=== PATIENT | female | born 1930 | race Caucasian/White ===

== ENCOUNTER 2018-03-22 22:35 | Inpatient (IN) | payer MEDICARE, OTHER ==
[2018-03-22] MEDS ORDERED: Ondansetron HCl/PF 4 MG/2 ML Vial ONE (23:02)
[2018-03-22] MEDS ORDERED: Fentanyl 100 MCG/2 ML VIAL ONE (23:45)
[2018-03-22 23:50] LABS: #Lymphocytes 1.7 thou/uL (1.20-3.40); #Monocytes 0.9 thou/uL (0.11-0.59); #Neutrophils 12.8 thou/uL (1.40-6.50); %Basophils 0.1 % (0.0-1.0); %Eosinophils 0.1 % (0.0-10.0); %Lymphocytes 10.9 % (21.0-51.0); %Monocytes 5.9 % (0.0-10.0); Mean Corpuscular HGB CONC 34.9 g/dL (32.0-36.0); Mean Corpuscular Hemoglobin 32.3 pg (27.0-31.0); Mean Corpuscular Volume 92.6 fL (78.0-98.0); Mean Platelet Volume 6.1 fL (7.4-10.4); Platelet Count 232 thou/uL (130-400); RBC Distribution Width 11.6 % (11.5-14.5); Red Blood Cell (RBC) Count 4.34 mill/uL (4.20-5.40); White Blood Cell (WBC) Count 15.4 thou/uL (4.8-10.8)
[2018-03-22] MEDS ORDERED: Mag-Al 1200 mg/1200 mg/30 ML UDCUP PO PRN (23:54)
[2018-03-22] MEDS ORDERED: niCARdipine 20MG in NaCl 200 ML BAG IVPB PRN (23:54)
[2018-03-22] MEDS ORDERED: Ondansetron HCl/PF 4 MG/2 ML Vial IVP PRN (23:54)
[2018-03-22] MEDS ORDERED: Milk Of Magnesia 30 ML UDCUP PO PRN (23:54)
[2018-03-23 00:10] LABS: ALT (SGPT) 34 U/L (8-55); AST (SGOT) 42 U/L (5-34); Albumin 4.4 g/dL (3.4-4.8); Alkaline Phosphatase 93 U/L (40-150); Anion Gap 13 mmol/L (10-20); BUN (Urea Nitrogen) 11 mg/dL (9.8-20.1); Bilirubin, Total 0.5 mg/dL (0.2-1.2); Calc. Creatinine Clearance 0 mL/min (70-130); Calcium 8.9 mg/dL (7.8-10.44); Carbon Dioxide 25 mmol/L (23-31); Chloride 97 mmol/L (98-107); Estimated GFR-MDRD 83; Globulin 2.9 g/dL (2.4-3.5); Glucose 174 mg/dL (83-110); Potassium 3.7 mmol/L (3.5-5.1); Protein, Total 7.3 g/dL (6.0-8.3); Sodium 131 mmol/L (136-145)
[2018-03-23 00:15] LABS: INR-International Normal Ratio 0.9; PTT 34.2 SEC (22.9-36.1); Prothrombin Time 12.7 SEC (12.0-14.7)
[2018-03-23] MEDS: Sodium Chloride 0.9% 1,000 ML IV SCH ×2 (01:57→12:00)
[2018-03-23] MEDS: niCARdipine HCl 25 MG in Sodium Chloride 0.9% 250 ML 240 ML IVPB PRN ×5 (02:56→23:46)
--- NOTE | 2018-03-23 07:41 | HP ---
CHIEF COMPLAINT: Headache. HISTORY OF PRESENT ILLNESS: Ms. Nayely Oneil is an 87-year-old female who reports to the ED in [place] this evening due to a headache and possible stroke. The patient's states that they had a "good normal day." They were doing regular activities throughout the house and at about 8:30 this evening, the patient stated that she had a headache and that she thought she was having a stroke. They proceeded to the emergency room in [place] where a CT scan was performed and a large intraparenchymal hematoma was noted, the patient was then transferred to our ED in [place]. The patient is currently lying in her hospital bed. She keeps saying that she is sleepy. She is arousable if I talk to her or asked some questions, she will respond, she will open her eyes for me and she is moving all 4 extremities. She will squeeze on command. She will wiggle her toes. The patient has confusion with date and place. She also has confusion with answering some questions. She states that she is sleepy and that she has a mild headache. The patient denies any numbness or tingling. The patient is normally a very active individual takes care of her at home with her in the past 60 years. 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 Otherwise, she is quite healthy. REVIEW OF SYSTEMS: Positive for review of systems is headache; however, unable to obtain much more. The patient denies numbness or tingling. PAST MEDICAL HISTORY: Osteopenia, motion sickness, dysrhythmia, history of TIA , essential hypertension, severe aortic stenosis, hyperlipidemia, history of DVT , anemia. PAST SURGICAL HISTORY: TAVR in 05/2017, hysterectomy in 1991 and carpal tunnel release in 2014. FAMILY HISTORY: Positive for mother with possible stroke. Grandfather with cardiovascular disease in multiple siblings with multiple myeloma. SOCIAL HISTORY: The patient is a never smoker, does not use any alcohol or illicit drugs. She is to her of 66 years. They live together independently and have an active life together. MEDICATIONS: Fosamax, aspirin, atorvastatin, biotin, calcium carbonate, carvedilol, clonidine, Plavix, hydrochlorothiazide, and olmesartan. PHYSICAL EXAMINATION: VITAL SIGNS: Temperature 98.0, heart rate 86, respiratory rate 18, blood pressure was 137/84. CONSTITUTIONAL: The patient is drowsy, lying in her hospital bed. She does not appear to be in any visible distress. She is afebrile. HEENT: Head: Normocephalic, atraumatic. ENT: Hearing is intact. Moist mucous membranes. RESPIRATORY: Showed normal work of breathing on room air. Normal symmetrical chest rise. CARDIOVASCULAR: Regular rate and rhythm. NEUROLOGIC: The patient's GCS is 13. She is alert and arousable. She is oriented to person. She does not know where she is or what year it is. She is confused and repeats years at times. The patient is moving all four extremities. She is following commands. She will open her eyes. Her pupils are equal, round, and reactive to light bilaterally. Extraocular movements, she has gaze to the left; however, movements to the right are limited and unsure if the patient can see to the right. The patient has no pronator drift, but difficult to raise both arms up in front of her. The patient has decreased motion in the right lower extremity showing a small toe wiggle. Sensation, the patient states that she can feel light touch in all 4 extremities and both sides of her face. IMAGING: CT head, there is a large intraparenchymal hematoma noted, centered at the left perioccipital lobe measuring 3.3 x 3.7 x 5.5 cm. There is surrounding vasogenic edema, intraventricular hemorrhage extension noted with hemorrhagic distention to the left. There is lateral ventricle extending to the third ventricle and encroachment upon the foramen of Monro associated dilation of the right lateral ventricle suggest ventricle entrapment, right lateral midline shift measures 1 cm left posterior cerebral convexity extraaxial , hemorrhage also extends to the subarachnoid space with adjacent subdural hemorrhage extending along the left tentorium. ASSESSMENT AND PLAN: This is an 87-year-old female with a large intraparenchymal hematoma with ventricular extension. The patient is currently on anticoagulants in addition to being hypertensive, which poses a large risk for continued bleeding. At this time, we will admit the patient to the ICU. We will keep her blood pressure below 150. We will have neuro checks every 4 hours. We will get a repeat scan at 4:00 a.m. and we will reverse anticoagulation with platelets. CORTEZ
[2018-03-23] MEDS: Pantoprazole 40 MG VIAL IVP SCH ×2 (08:38→23:12)
--- NOTE | 2018-03-23 09:11 | PRG ---
DATE OF SERVICE: 03/23/2018 NEUROSURGERY NOTE I personally interviewed and examined the patient, spoke with the and niece, reviewed records and imaging and agree with documentation of Catherine Barrios PA-C dated 03/22/2018. SUBJECTIVE: Briefly, Ms. Nayely Oneil is an 87-year-old woman from [place] who was taken to the [place] emergency department yesterday with new onset hemianopsia and decreased mental status. She was tripathi sferred to [facility] after CT examination of the brain showed intra cerebral hemorrhage with some extension into the ventricular system and subdural space. She has been admitted to our ICU overnight. Blood pressure has been well controlled overnight and her blood pres sure when I saw this morning was in the 120s. Her pulse was in the 70s. She is satting well. As I entered the room and say her name, Ms. Oneil opens her eyes. She nods her head. She says a few word s to questions. When I have her open her eyes and look at my face, her right visual field is missing . She is moving both sides of her body fairly well. She follows commands very well. She squeezes b oth hands, the left arm moves a little slower than the right, but it is hard to tell a significant mo tor difference actually. She drifts back to sleep fairly quickly. CT examination of the brain this morning compared to the [facility] scan yesterday shows a small increase in the size of the intracerebral hemorrhage and there is some dural extension and extension into the ventricular system. This is the beginning of some vasogenic edema surrounding. This morning, her sodium is 131. Ms. Oneil is doing relatively well from the hemorrhage of this size. Her visual field cut, which I u nfortunately think will be somewhat permanent. It may improve from here, but I think there will be s ome visual difficulty going forward. She is moving both sides of her body. She is arousable and ans wering questions and trying to communicate before falling back to sleep. I do not think surgical int ervention will be warranted, but we need to watch for and prevent any worsening of her vasogenic reina a. We will ensure the blood has stopped hemorrhaging with a unit of platelets. We will control her blood pressure while she is here. We will keep an EVD tray accessible in case hydrocephalus she deve lop. So far, I am happy with her examination. I do not think we need to perform any invasive proced ures. It would also be high risk given her recent Plavix and aspirin use. Ms. Oneil's reiterated her wish not to be intubated, not to have chest compressions, and not to have shocks for her heart, if she develops any dysrhythmias that might require it. If there is a deterioration, I will need to get in touch with the family quickly to talk to them before placing an external ventricular drain or any operative intervention. Hopefully, we can manage this with avoidan ce of hypotonic fluids, mannitol if necessary and supportive care.
--- NOTE | 2018-03-23 09:55 | CT ---
PRELIMINARY REPORT/[facility]/EMERGENTY AFTER-HOURS PROCEDURE Addendum created by Hosea Meneses MD on 03/23/2018 4:45 AM Central Time ([place] [employer] [place]) Findings discu ssed with Denis Alexander at time of interpretation. Initial Report created on 03/23/2018 4:34 AM Central Time ([place] [employer] [place]) CT Head Without Intravenous Contrast EXAM DATE/TIME: 03/23/2018 3:28 AM CLINICAL HISTORY: 87 years old, female; Condition or disease; Other: Hemorrhage; Patient HX: Eval intracranial hemorrha ge; Additional info: No prior studies, PT is a transfer from another facility TECHNIQUE: Axial computed tomography images of the head/brain without intravenous contrast. COMPARISON: No relevant prior studies available. FINDINGS: Brain: There is also extra-axial blood layering along the left tentorium cerebelli and a 2 cm parench ymal hemorrhage in the right occipital lobe as well as trace posterior right frontal subarachnoid hem orrhage. 1 cm rightward midline shift. Volume loss and chronic small vessel ischemic change. Ventricles: Large left parieto-occipital intraparenchymal hematoma spanning approximately 7-8 cm in m aximum dimension, with extension into the left lateral ventricle. There is clot filling and expanding the entire left lateral ventricle as well as filling the third and fourth ventricles and extending i nto part of the right lateral ventricle. Enlargement of lateral ventricles compatible with obstructiv e hydrocephalus. Bones/joints: Normal. No acute fracture. Sinuses: Normal as visualized. No acute sinusitis. Mastoid air cells: Normal as visualized. No mastoid effusion. Soft tissues: Normal. IMPRESSION: Multifocal intracranial hemorrhage with dominant left parieto-occipital intraparenchymal hematoma ext ending into the ventricular system. Obstructive hydrocephalus. 1 cm rightward midline shift. Thank you for allowing us to participate in the care of your patient. Dictated and Authenticated by: Hosea Meneses MD 03/23/2018 4:34 AM Central Time ([place] [employer] [place]) FINAL REPORT EMERGENT AFTER HOURS NONCONTRAST CT HEAD: DATE: 03/23/18. HISTORY: Intracranial hemorrhage, hypertension. IMPRESSION: 1. Large left parietooccipital intraparenchymal hematoma measuring approximately 5.7 cm x 4.1 cm. T here is intraventricular hemorrhage present with a large amount of hemorrhage present within the left lateral ventricle as well as hemorrhage within the right lateral, third, and in the fourth ventricle s. 2. Subdural hemorrhage along the ;eft tentorium and along the posterior inferior falx. 3. Mild dilatation of the temporal horns, likely related to a component of obstructive hydrocephalus . 4. Chronic small-vessel ischemic changes. 5. Effacement of sulci in left cerebral hemisphere. There is shift of midline structures to the rig ht, a large portion related to the extensive hemorrhage within the left lateral ventricle expanding t he left lateral ventricle and shifting midline structures to the right. This shift of midline struct ures measures approximately 1 cm. 6. Trace amount of subarachnoid hemorrhage in the posterior right frontal lobe. POS: [facility]
[2018-03-23] MEDS ORDERED: Norepinephrine 8 MG/0.9% NS 0 ML ONE (15:13)
--- NOTE | 2018-03-23 15:22 | CT ---
NONCONTRAST CT HEAD: DATE: 03/23/18. HISTORY: Followup intracranial hemorrhage. COMPARISON: 03/23/18 at 0329 hours. FINDINGS: Large parenchymal hematoma in the left parietooccipital lobe is again seen with adjacent edema. Measured in a similar location, the parenchymal hematoma is overall stable in size. Again noted is i ntraventricular extension of hemorrhage with a large amount of hemorrhage within the left lateral tatiana tricle and third ventricle. The subdural hematoma along the tentorium along the falx on the left is again seen and overall is similar in size. There is again subarachnoid hemorrhage seen within the po sterior right frontal lobe. Mass effect in left cerebral hemisphere is also again seen and there is persistent shift of the midlines structures. Midline shift has not significantly changed from the pr ior exam. There is a small amount of subarachnoid hemorrhage seen with the posterior right parietal region which was not well seen on prior study. No other interval change. IMPRESSION: 1. Extensive intraparenchymal and interventricular hemorrhage similar to prior study with a large pa renchymal hematoma again occupying a large portion of the left parietooccipital lobe. In addition, t here are areas of subarachnoid hemorrhage in the posterior right frontal lobe as well as the right pa rietal lobe with subdural hematoma on the left. 2. Extensive intraventricular hemorrhage is present primarily involving the left lateral ventricle w ith expansion of the lateral ventricle and findings suggestive of obstructive hydrocephalus. 3. Stable shift of midline structures to the right with stable mass effect involving the left cerebr al hemisphere. POS: [facility]
--- NOTE | 2018-03-23 17:53 | CON ---
DATE OF CONSULTATION: HISTORY OF PRESENT ILLNESS: Ms. Nayely Oneil is an 87-year-old female from [place], [place]. She normall y sees [facility] physician here locally, presented yesterday with acute onset of left eye visio n problems and a headache and told to the , she was having a stroke she had intracranial hemorrhage. She was transferred here under the care of Dr. Jacobson. CT of the head confirmed the intracranial hemorrhage. She is a nonsmoker. Presently, she denies any chest pain, chills, or sweats. PAST MEDICAL HISTORY: Pertinent for, 1. Recent TAVR surgery done [facility] in [place] 2. History of hypertension. 3. History of hyperlipidemia. 4. Anemia. 5. History of previous DVT. PAST SURGICAL HISTORY: Include carpal tunnel, TAVR, abdominal hysterectomy. MEDICATIONS: Including alendronate 70 mg a day, aspirin 81, calcium, Coreg 6.25 two a day, Catapres patch 0.1 24 hours, Plavix 75. ALLERGIES: None. SOCIAL AND FAMILY HISTORY: Otherwise unremarkable. No alcohol, no tobacco abuse. She had some kind of a clerical job. Patient is apparently a DNR per the family's wishes. She is on a Cardene drip. PHYSICAL EXAMINATION: VITAL SIGNS: Blood pressure 130/53, sats are 95, temperature 98, respirations 15. GENERAL: Awake, alert, responsive. EXTREMITIES: Does move all 4 extremities. CHEST: Decreased breath sounds without any wheezing. CARDIAC: Normal S1, S2, no gallops. ABDOMEN: Soft without any masses. LABORATORY DATA: Sodium is 131, otherwise electrolytes are normal. CBC is unremarkable. Platelet count is normal. IMPRESSION AND PLAN: The patient is a DNR as per the family's wishes. Dr. Jacobson has spoken to the family at length. I understand they are going to transfuse some plat elets, because of Plavix that she was taking. Pulmonary and Critical Care will follow while in the [facility]. Once she is able to swallow, we will switch over to oral antihypertensive medication. This is a consultation note of 70 minutes, in which 50% spent in direct patient care.
[2018-03-24] MEDS: Sodium Chloride 0.9% 1,000 ML IV SCH ×2 (01:51→16:48)
--- NOTE | 2018-03-24 07:21 | PRG ---
DATE OF SERVICE: 03/24/2018 I saw Nayely Oneil in her ICU room this morning. Yesterday, she got a unit of platelets in the morning. A repeat CT scan that was stable, and overnight, her vitals looked stable to me. I do not see any recorded fevers. Blood pressures have been within her parameters and running from the 110s to the 14 0s. When I see Ms. Oneil in her ICU room this morning and say her first name, she opens her eyes. S he says hello. She tells me that she will wiggle her toes, but she does not get to wiggle her toes b efore falling back asleep. She squeezes my hand on both sides. She is very purposeful. She rolls o katherin in bed. She adjusts the sheet. She makes herself comfortable. She rests. Other than her tired ness, there is not significant alteration in her neurological function except for the hemianopsia. S he may have some hemianopsia. Sodium on the was 131 and should be repeated. Ms. Oneil has intracerebral hemorrhage with some extension into the subdural space and some extension into the ventricular system. She is at least 36 hours out from her ictus, and I doubt she will need neurosurgical intervention at all. I would like to watch her sodium to make sure that we do not exa cerbate any vasogenic edema around the clot. We will follow up with Ms. Oneil tomorrow. Her primary management can be transitioned to the medical team for this nonsurgical intracerebral hemorrhage.
[2018-03-24 07:55] LABS: #Lymphocytes 1.2 thou/uL (1.20-3.40); #Monocytes 0.9 thou/uL (0.11-0.59); #Neutrophils 10.7 thou/uL (1.40-6.50); %Basophils 0.1 % (0.0-1.0); %Monocytes 6.9 % (0.0-10.0); %Neutrophils 83.9 % (42.0-75.0); Hemoglobin 12.4 g/dL (12.0-16.0); Mean Corpuscular HGB CONC 35.9 g/dL (32.0-36.0); Mean Corpuscular Hemoglobin 33.3 pg (27.0-31.0); Mean Corpuscular Volume 92.7 fL (78.0-98.0); Mean Platelet Volume 6.1 fL (7.4-10.4); Platelet Count 245 thou/uL (130-400); RBC Distribution Width 11.8 % (11.5-14.5); Red Blood Cell (RBC) Count 3.73 mill/uL (4.20-5.40); White Blood Cell (WBC) Count 12.8 thou/uL (4.8-10.8)
[2018-03-24 08:14] LABS: Anion Gap 12 mmol/L (10-20); BUN (Urea Nitrogen) 10 mg/dL (9.8-20.1); Calc. Creatinine Clearance 72 mL/min (70-130); Calcium 8.4 mg/dL (7.8-10.44); Carbon Dioxide 24 mmol/L (23-31); Chloride 97 mmol/L (98-107); Estimated GFR-MDRD Greater than 90; Glucose 145 mg/dL (83-110); Potassium 3.1 mmol/L (3.5-5.1); Sodium 130 mmol/L (136-145)
[2018-03-24] MEDS ORDERED: Labetalol HCl 100 MG/20 ML VIAL SLOW IVP PRN (08:42)
[2018-03-24] MEDS ORDERED: cloNIDine 0.1mg/24 Hour PATCH TD SCH (09:00)
[2018-03-24] MEDS: Pantoprazole 40 MG VIAL IVP SCH (09:13)
--- NOTE | 2018-03-24 11:02 | PRG ---
DATE OF SERVICE: 03/24/2018 This morning she is in the ICU on a Cardene drip. Speech is to see her today to see if she can swall ow. She is moving all 4 extremities. PHYSICAL EXAMINATION: VITAL SIGNS: Temperature is 97, pulse 95, respirations 20, sats are 94%, blood pressure 131/60. CHEST: Chest reveals decreased breath sounds without wheezing. CARDIAC: Normal S1, S2, no gallops. ABDOMEN: Soft, no masses. LABORATORY: Sodium 130. White count 12,000, H&H [address] brain yesterday shows as outlined extensive intraventricular hemorrhage. PLAN: Continue supportive care. Start antihypertensive medication. PT. Try and wean off Cardene. We will follow while in the ICU.
[2018-03-24] MEDS: niCARdipine HCl 25 MG in Sodium Chloride 0.9% 250 ML 240 ML IVPB PRN (11:10)
[2018-03-24] MEDS: niCARdipine HCl 50 MG in Sodium Chloride 0.9% 250 ML 230 ML IVPB PRN (16:50)
[2018-03-24] MEDS ORDERED: Potassium Chloride 20 MEQ TAB PO SCH (17:00)
--- NOTE | 2018-03-24 18:27 | ULT ---
BILATERAL LOWER EXTREMITY VENOUS DOPPLER ULTRASOUND: 03/24/2018 HISTORY: Stroke. Limited movement. High risk for DVT. COMPARISON: None. TECHNIQUE: Multiplanar carrion-scale sonographic imaging of the venous structures of the bilateral lower extremitie s obtained with color-flow and spectral analysis. FINDINGS: The bilateral common femoral veins, greater saphenous veins, profunda femoral vein, femoral veins, po pliteal veins, and posterior tibial veins are patent. There is normal blood flow, augmentation, and compression within the deep venous system bilaterally, with no evidence for DVT on either side. IMPRESSION: No evidence for deep venous thrombosis of either lower extremity. POS: [facility]
[2018-03-24] MEDS ORDERED: Potassium Chloride 40 MEQ in Sodium Chloride 0.9% 250 ML 250 ML IVPB SCH (22:30)
[2018-03-25] MEDS: Sodium Chloride 0.9% 1,000 ML IV SCH ×3 (00:22→20:18)
[2018-03-25] MEDS: niCARdipine HCl 50 MG in Sodium Chloride 0.9% 250 ML 230 ML IVPB PRN (04:20)
[2018-03-25 06:42] LABS: #Lymphocytes 1.6 thou/uL (1.20-3.40); #Neutrophils 8.4 thou/uL (1.40-6.50); %Basophils 0.1 % (0.0-1.0); %Eosinophils 0.2 % (0.0-10.0); %Lymphocytes 14.5 % (21.0-51.0); %Monocytes 9.2 % (0.0-10.0); Hemoglobin 12.7 g/dL (12.0-16.0); Mean Corpuscular HGB CONC 35.4 g/dL (32.0-36.0); Mean Corpuscular Hemoglobin 32.5 pg (27.0-31.0); Mean Corpuscular Volume 91.8 fL (78.0-98.0); Mean Platelet Volume 5.8 fL (7.4-10.4); Platelet Count 231 thou/uL (130-400); RBC Distribution Width 11.8 % (11.5-14.5); Red Blood Cell (RBC) Count 3.89 mill/uL (4.20-5.40); White Blood Cell (WBC) Count 11.1 thou/uL (4.8-10.8)
[2018-03-25 07:01] LABS: Anion Gap 8 mmol/L (10-20); BUN (Urea Nitrogen) 12 mg/dL (9.8-20.1); Calc. Creatinine Clearance 73 mL/min (70-130); Calcium 8.7 mg/dL (7.8-10.44); Carbon Dioxide 28 mmol/L (23-31); Chloride 100 mmol/L (98-107); Estimated GFR-MDRD Greater than 90; Glucose 123 mg/dL (83-110); Potassium 3.7 mmol/L (3.5-5.1); Sodium 132 mmol/L (136-145)
--- NOTE | 2018-03-25 07:04 | PRG ---
DATE OF SERVICE: 03/25/2018 I saw Ms. Oneil in the ICU this morning. Yesterday, her sodium was 130, I made some adjustments to h er fluid intake and due to her nicardipine drip, severely limited the amount she could take p.o. No other events were reported over the last 24 hours. Her T-max is 99.3, blood pressures have been in 1 30s to 140s. Other vitals are stable. Ms. Oneil is resting comfortably in bed as I enter the room. If I call her first name she opens her eyes. She is purposeful with 4 extremities. She is slightly sore over the right arm this morning than she was yesterday, but eventually she begins to move it. She tells me she can follow commands, but there is quite a delay between her accepting the instructio n and then performing them. With patience and time she does. She certainly is purposeful, she rearr anges herself on her own. She moves bed sheets. She tries to move the pillow. She wants to get up and out of bed and restraints are in place. Laboratory values are not back yet this morning. Ms. Oneil suffered a nonsurgical intracerebral hemorrhage with some extension into the ventricular sy stem and the subdural space. 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 Going forward, I will do our best to make sure that the surrounding vasogenic edema is mitigated by k eeping her sodium in the normal range. We will do that first by limiting her fluid intake, if we hav e to changes to hypertonic saline infusions then that change can be made. I think we will be able to get by with fluid restriction. It is exceedingly unlikely Ms. Oneil will require neurosurgical intervention for this hemorrhage. Inpatient rehabilitation is likely to be necessary as well as physical and occupational therapy. The Neurosurgery team will be available for questions as our colleagues in the medical team will take ov er care per protocol.
--- NOTE | 2018-03-25 08:51 | PRG ---
DATE OF SERVICE: 03/25/2018 This morningshevis swallowing. PHYSICAL EXAMINATION: VITAL SIGNS: Pulse 88, blood pressure is 129/56, 2-1/2 mg of Cardene, she is afebrile, respirations 18. GENERAL: In no distress. CHEST: Chest reveals decreased breath sounds, no wheezing. CARDIAC: Normal S1, S2, no gallops. ABDOMEN: Soft, no masses. IMPRESSION: 1. Status post leftICH_ hematoma. Stable shift. 2. Hypertension. PLAN: We are trying to taper and discontinue her Cardene. She is already on a Catapres patch from home. She normally takes low dose of HCTZ. We will continue supportive care, PT, nutrition. Eventually placement. MTDD
[2018-03-25] MEDS ORDERED: Pantoprazole 40 MG VIAL IVP SCH (09:00)
[2018-03-25] MEDS ORDERED: Carvedilol 6.25 MG TAB PO SCH (09:00)
--- NOTE | 2018-03-25 16:01 | PDOC.EVN ---
Event Note - Event Note Event Note: CONSULT DICTATED #[id number]
[2018-03-25] MEDS ORDERED: HumaLOG 300 UNITS/3 ML VIAL SC PRN (16:05)
[2018-03-25] MEDS ORDERED: Dextrose 50% Abboject 50 ML SYRINGE SLOW IVP PRN (16:05)
[2018-03-25] MEDS ORDERED: Dextrose 5% in Water 1,000 ML IV PRN (16:05)
--- NOTE | 2018-03-25 16:19 | CON ---
DATE OF CONSULTATION: 03/25/2018 CONSULTED SERVICE: Hospitalist Internal Medicine. ATTENDING TEAM: Neurosurgery. REASON FOR CONSULTATION: Medical management. CHIEF COMPLAINT: Headache. HISTORY OF PRESENT ILLNESS: This is an 87-year-old female who is being seen in the hospital by the I nternal Medicine team 3 days after admission for medical management. The patient was initially prese nting with headache and was admitted to the ICU after having been found with an intraparenchymal ismael neela with ventricular extension. The patient was admitted to the Neuro ICU and seen by Neurosurgery. The patient has been managed this far by Neurosurgery and Pulmonary and stroke team appropriately. No changes in management thus far will be recommended. The patient has had evaluations done with a brain CT at point in time of admission, which showed an extensive intraparenchymal and intraventricul ar hemorrhage and extensive intraventricular hemorrhage involving the left lateral ventricle and expa nsion of the lateral ventricle as well. The patient at this point in time is being seen by Internal Medicine for blood pressure management. The patient does not provide any history. No family at [facility]. History obtained from chart review. The patient has a past medical history for hypertension, w hich has been difficult to control. The patient also has a history for hyperlipidemia, anemia, prior DVT as well as valvulopathy status post TAVR at [facility] in [place]. ALLERGIES: Per documentation none. MEDICATIONS: See MAR. PAST SURGICAL HISTORY: Inclusive of carpal tunnel, TAVR and abdominal hysterectomy. PAST MEDICAL HISTORY: Inclusive of hypertension, hyperlipidemia, anemia and prior DVT. SOCIAL HISTORY: Per documentation is a nontobacco user, no alcohol user. FAMILY HISTORY: Unavailable. REVIEW OF SYSTEMS: Not able to be performed given current patient condition. PHYSICAL EXAMINATION: VITAL SIGNS: Blood pressure is 123/54, respiratory rate of 19, heart rate of 87, temperature of 98, O2 saturation of 98% on room air. GENERAL: The patient is lying in bed, in no acute distress. HEENT: Pupils equal, round and reactive to light and accommodation. The patient is sleeping and larry s does not track me through the room. Oral cavity is moist and pink. NECK: Supple, nontender, mobile thyroid appreciated. LUNGS: Clear to auscultation bilaterally. No respiratory distress noted. No increase in AP diamete r. CARDIOVASCULAR: Regular rate and rhythm. S1, S2. Faint systolic murmur appreciated in the left ajit rnal border. ABDOMEN: Positive bowel sounds, soft, nontender, nondistended. EXTREMITIES: 2+ peripheral pulses. No cyanosis, clubbing or edema noted. Trace pitting edema noted in lower extremities as well as trace sacral edema noted, pitting. NEUROLOGIC: The patient withdraws to pain stimuli, decorticate posturing upon sternal rub, does not respond to verbal stimuli, does not track me through the room. SKIN: Normal and intact. No rashes noted. LABORATORY DATA: CBC is within acceptable limits. Basic metabolic panel shows a serum sodium of 132 . The rest of the panel is within acceptable limits. Glucose borderline elevated at 123. IMAGING STUDIES: Brain CT scan as mentioned earlier in HPI does show intraventricular hemorrhage. V enogram shows no DVT in the extremities. ASSESSMENT: 1. Intracranial hemorrhage extending into the intraventricular region as well. 2. Hypertension. 3. Hyponatremia. 4. Hyperglycemia. 5. History of dyslipidemia. 6. History of valvulopathy, status post TAVR. PLAN: At this point in time, I agree with current management from the Neuro Critical Care Service. Would probably target a blood pressure of systolic 120-140. We will also obtain an A1c to evaluate f or diabetes status given that prior records show blood sugars ranging into the 140-170 range. Agree with the current medical regimen. We will check daily labs and target blood pressures as menti oned above. We will start the patient on a sliding scale as well given hyperglycemia and we will als o start the patient on DVT prophylaxis with SCDs. We will hold off any antiplatelets or any anticoag ulation at this point in time unless cleared to be given by Neurosurgery, given that the patient pres ented with a bleed. No family at bedside. Phone number available in chart was dialed, however, no one responded. Thank you for this consultation. We will follow very closely with you and make changes from a medica l perspective as appropriate.
[2018-03-25] MEDS ORDERED: Digoxin 0.5 MG/2 ML AMP SLOW IVP SCH (16:30)
[2018-03-25 16:44] LABS: Hemoglobin A1c 5.4 % (4.0-6.0)
[2018-03-25] MEDS: Carvedilol 6.25 MG TAB PO SCH (17:20)
[2018-03-26] MEDS: Acetaminophen 325 MG TAB PO PRN (01:37)
[2018-03-26] MEDS: Sodium Chloride 0.9% 1,000 ML IV SCH ×2 (05:39→23:21)
[2018-03-26 06:57] LABS: Anion Gap 11 mmol/L (10-20); BUN (Urea Nitrogen) 8 mg/dL (9.8-20.1); Calc. Creatinine Clearance 76 mL/min (70-130); Calcium 8.6 mg/dL (7.8-10.44); Carbon Dioxide 24 mmol/L (23-31); Chloride 97 mmol/L (98-107); Estimated GFR-MDRD Greater than 90; Glucose 108 mg/dL (83-110); Potassium 3.2 mmol/L (3.5-5.1); Sodium 129 mmol/L (136-145)
[2018-03-26] MEDS: Carvedilol 6.25 MG TAB PO SCH (08:05)
[2018-03-26] MEDS ORDERED: cloNIDine 0.1mg/24 Hour PATCH TD SCH (09:00)
--- NOTE | 2018-03-26 09:03 | PRG ---
DATE OF SERVICE: 03/26/2018 SUBJECTIVE: This morning, to my surprise, more awake, responsive. She is eating. She answers quest ions. She is unable to see on the right side, right hemianopsia is present. OBJECTIVE: VITAL SIGNS: Blood pressure was still elevated 161/17, sats are 100% on 2 liters. She is afebrile. CHEST: Chest reveals decreased breath sounds, no wheezing. CARDIAC: Normal S1, S2. No gallops. ABDOMEN: Soft, no masses. LABORATORY DATA: Sodium is 129, potassium 3.2. Urine output is excellent. IMPRESSION: 1. Status post supraventricular tachycardia, now in normal sinus rhythm on Coreg, off nicardipine. 2. Intracerebral hemorrhage. PLAN: Continue PT and supportive care, eventually placement. We will follow. One-half hour critical care time.
[2018-03-26] MEDS: hydrALAZINE 20 MG/ML VIAL SLOW IVP PRN ×2 (15:41→20:12)
--- NOTE | 2018-03-26 19:09 | PDOC.PN ---
- Subjective Encounter Start Date: 03/26/18 Encounter Start Time: 10:40 -: non-verbal Subjective: Patient seen by bedside with and niece in the room. -: Patient here with CC of Intracranial hemorragic stroke -: Patient nods to verbal stimuli. Patient is Alert to self but not to place - Objective Vital Signs & Weight: Vital Signs (12 hours) Temp Pulse Resp BP Pulse Ox 03/26/18 16:00 98.6 F 03/26/18 15:41 74 173/72 H 03/26/18 12:00 98.7 F 03/26/18 08:05 163/117 H 03/26/18 08:00 98.2 F 66 18 98 Weight Admit Weight 139 lb Weight 138 lb 14.259 oz Most Recent Monitor Data Heart Rate from ECG 88 NIBP 158/67 NIBP BP-Mean 87 Respiration from ECG 18 SpO2 97 I&O: 03/25/18 03/26/18 03/27/18 06:59 06:59 06:59 Intake Total 1460 2163 1401 Output Total 930 3677 1610 Balance 530 -0774 -209 Result Diagrams: 03/25/18 06:34 03/26/18 06:13 Additional Labs: Accuchecks 03/26/18 03/25/18 16:12 20:41 POC Glucose 154 H 125 H Phys Exam - Physical Examination HEENT: moist MMs, sclera anicteric Respiratory: no wheezing, no rales, no rhonchi, clear to auscultation bilateral Cardiovascular: RRR, no rub Gastrointestinal: soft, no distention, positive bowel sounds Musculoskeletal: no edema, pulses present 2/5 Left arm strength, 1/5 R arm strength, Pupil reactive to light b/l Deviation from normal: AOX1 Skin: no rash Dx/Plan (1) History of hemorrhagic stroke with residual hemiparesis Code(s): I69.359 - HEMIPLGA FOLLOWING CEREBRAL INFARCTION AFFECTING UNSP SIDE Status: Acute Comment: Continue Neuro surgery management (2) Hypertension Code(s): I10 - ESSENTIAL (PRIMARY) HYPERTENSION Status: Acute Qualifiers: Hypertension type: essential hypertension Qualified Code(s): I10 - Essential (primary) hypertension Comment: Continue hydralazine, Lebatolol prn, Clonidine, (3) Hyperlipidemia Code(s): E78.5 - HYPERLIPIDEMIA, UNSPECIFIED Status: Chronic (4) Acute hyponatremia Code(s): E87.1 - HYPO-OSMOLALITY AND HYPONATREMIA Status: Acute - Plan plan discussed w/ family, DVT proph w/SCDs * . Review of Systems - Medications/Allergies Allergies/Adverse Reactions: Allergies Allergy/AdvReac Type Severity Reaction Status Date / Time No Known Drug Allergies Allergy Verified 03/23/18 01:58 Medications: Current Medications Acetaminophen (Tylenol) 650 mg PO Q6H PRN PRN Reason: Fever > 101 or Headache Last Admin: 03/26/18 01:37 Dose: 650 mg Al Hydroxide/Mg Hydroxide (Maalox) 30 ml PO QIDPRN PRN PRN Reason: Dyspepsia Carvedilol (Coreg) 25 mg PO BID-WM MICHAEL Clonidine (Kszcjiuc-Cxl-7 Patch) 0.2 mg TD Q7DAYS [facility] Last Admin: 03/26/18 13:32 Dose: 0.2 mg Dextrose/Water (Dextrose 50%) 25 gm SLOW IVP PRN PRN PRN Reason: Hypoglycemia Docusate Sodium (Colace) 100 mg PO BIDPRN PRN PRN Reason: Constipation Glucagon (Glucagon) 1 mg IM PRN PRN PRN Reason: Hypoglycemia Hydralazine HCl (Apresoline) 10 mg SLOW IVP Q4H PRN PRN Reason: SBP >160 Last Admin: 03/26/18 15:41 Dose: 10 mg Nicardipine HCl 50 mg/ Sodium (Chloride) 250 mls @ 0 mls/hr IVPB INF PRN; Protocol; Titrate PRN Reason: For SBP > 150 or DBP > 90 Last Admin: 03/25/18 04:20 Dose: 250 mls Dextrose/Water (D5w) 1,000 mls @ 0 mls/hr IV .Q0M PRN; As Directed PRN Reason: Hypoglycemia Sodium Chloride (Normal Saline 0.9%) 1,000 mls @ 100 mls/hr IV .Q10H [facility] Last Admin: 03/26/18 05:39 Dose: 1,000 mls Insulin Human Lispro (Humalog) 0 units SC .MILD SLIDING SCALE PRN PRN Reason: Mild Correctional Scale Labetalol HCl (Normodyne) 10 mg SLOW IVP Q4H PRN PRN Reason: SBP Greater Than 180 Magnesium Hydroxide (Milk Of Magnesium) 30 ml PO BIDPRN PRN PRN Reason: Constipation Ondansetron HCl (Zofran) 4 mg IVP BIDPRN PRN PRN Reason: Nausea/Vomiting Pantoprazole Sodium (Protonix) 40 mg PO DAILY MICHAEL Sodium Chloride (Flush - Normal Saline) 10 ml IVF PRN PRN PRN Reason: Saline Flush Last Admin: 03/23/18 23:12 Dose: 10 ml
--- NOTE | 2018-03-27 00:41 | CON ---
CARDIOLOGY CONSULT NOTE DATE OF ADMISSION: 03/23/2018 DATE OF CONSULTATION: 03/26/2018 INDICATION FOR CONSULTATION: An 87-year-old female with an intracerebral bleed., who underwent a pre vious TAVR, also had an episode of atrial fibrillation earlier today or last night. HISTORY OF PRESENT ILLNESS: This is a very unfortunate 87-year-old female who has undergone recently a TAVR, I believe this was performed at [facility]. She has been doing very well at home and t old her that she thought she was having a stroke. She went to the emergency room and was fou nd to have a large intraparenchymal bleed. She then was transferred to the hospital here, she has be en taken off her Plavix and aspirin due to the bleed. There are no focal motor deficits. The patien t is hard of hearing and is somewhat hard to communicate and otherwise was relatively stable, but the n started having an episode of atrial fibrillation earlier today. She has since converted back to si nus rhythm after medical management. We are being asked to see her due to her cardiac problems and a lso the atrial fibrillation. At this time, she is arousable, she is in sinus rhythm with occasional PVCs. She does not answer my questions at this time, but is difficult to arouse, most likely this is due to her hearing deficit, but there were no other significant complaints from the patient. PAST MEDICAL HISTORY: Significant for the TAVR due to severe aortic valve stenosis, hyperlipidemia. She has had a history of DVTs, anemia, history of TIA in the past. She has history of osteopenia. She has had some arrhythmias. She has history of hypertension. She has had a hysterectomy and also carpal tunnel release. FAMILY HISTORY: Mother had a possible CVA. Father had cardiovascular disease. She has had multiple siblings with multiple myeloma. SOCIAL HISTORY: No history of alcohol or tobacco abuse. She still lives with her at home. MEDICATIONS PRIOR TO ADMISSION: Included Fosamax, aspirin, atorvastatin, biotin, calcium carbonate, Coreg, clonidine, Plavix, hydrochlorothiazide, and olmesartan. ALLERGIES: There are no known drug allergies. REVIEW OF SYSTEMS: Not obtainable at this time. Please refer to the notes already dictated. PHYSICAL EXAMINATION: GENERAL: Reveals an elderly female who is in no acute distress at this time. She is arousable, but appears to be somewhat lethargic. VITAL SIGNS: Her blood pressure is 166/66, heart rate is 74 and shows a regular rhythm with occasion al PVCs. She is afebrile, respiratory rate is about 16-18. HEENT: Shows head to be normocephalic, atraumatic. LUNGS: Carotid pulses are present. I did not hear any significant bruits at this time. Chest is cl ear to auscultation without any rales, rhonchi, or wheezing. CARDIOVASCULAR: I did not hear any significant murmurs. She has regular rate and rhythm and now wit h normal S1, S2. ABDOMEN: Soft and nontender. Positive bowel sounds are present. EXTREMITIES: Show no clubbing or cyanosis. NEUROLOGIC: Please refer to the physical examination by the neurologist. She is not cooperative at this time for a neurological evaluation. She is able to move her all four extremities, however. SKIN: Warm and dry. LABORATORY DATA: Shows a sodium of 129, potassium 3.2, chloride 97, bicarbonate is 24, BUN is 8 with a creatinine 0.53, blood sugar is 154. Hemoglobin A1c is 5.4. Her INR is 0.9. WBC 11.1, hemoglobi n 12.7, hematocrit 35.7, platelet count is 231,000. IMPRESSION: 1. Atrial fibrillation with rapid ventricular response which has since resolved after medical manage ment. She was placed on diltiazem and digoxin. This I believe these have since been discontinued af ter she converted to sinus rhythm. She is now on Coreg 12.5 mg b.i.d. and continues to maintain sinu s rhythm. She has also been given clonidine patch for hypertension. At this time, I would agree the present management. Should she develop further episodes of atrial fibrillation, would suggest IV di ltiazem again. We will also need to obtain the records from [facility] to determine if she has a history in the past of atrial fibrillation and what medicine she possibly could have been taking. There is no indication that she was taking any antiarrhythmic medications prior to her admission. 2. Status post intracerebral bleed. This will be dealt with by the neurologist. Hopefully, she kenji l recover from this. 3. Hypertension. We will continue to manage her medicines as needed, can increase the dose of the C oreg, she is only on taking 12.5 mg b.i.d. We could easily increase this up to 25 mg b.i.d. 4. History of hyperlipidemia. Once she is more stable, we can resume her atorvastatin. At this margret e from a cardiac standpoint, would just need to manage her medications for the hypertension and also to hopefully follow her with the hopes that she does not again have episodes of atrial fibrillation. We would be more than happy to continue to follow the patient with you and will try to obtain the re cords from [facility] the exact size of valve and any other past medical history concerning the cardiac status.
[2018-03-27] MEDS: hydrALAZINE 20 MG/ML VIAL SLOW IVP PRN ×2 (02:34→18:46)
[2018-03-27 05:55] LABS: Anion Gap 15 mmol/L (10-20); BUN (Urea Nitrogen) 13 mg/dL (9.8-20.1); Calc. Creatinine Clearance 73 mL/min (70-130); Calcium 8.5 mg/dL (7.8-10.44); Carbon Dioxide 25 mmol/L (23-31); Chloride 92 mmol/L (98-107); Estimated GFR-MDRD Greater than 90; Glucose 118 mg/dL (83-110); Sodium 129 mmol/L (136-145)
[2018-03-27 05:58] LABS: Potassium 2.8 mmol/L (3.5-5.1)
[2018-03-27] MEDS: Potassium Chloride 20 MEQ TAB PO SCH ×2 (06:36→10:21)
--- NOTE | 2018-03-27 07:17 | PDOC.PN ---
- Subjective Encounter Start Date: 03/27/18 Encounter Start Time: 07:00 Subjective: Admitted for Stroke. Seen and examined. Not in acute distress. -: Able to say hello and responds to verbal stimuli - Objective Vital Signs & Weight: Vital Signs (12 hours) Temp Pulse Resp BP Pulse Ox 03/27/18 02:34 63 162/57 H 03/27/18 01:52 98.6 F 03/26/18 20:12 78 173/73 H 03/26/18 20:00 100.2 F H 82 23 H 94 L Weight Admit Weight 139 lb Weight 137 lb 12.623 oz Most Recent Monitor Data Heart Rate from ECG 69 NIBP 155/54 NIBP BP-Mean 66 Respiration from ECG 18 SpO2 97 I&O: 03/26/18 03/27/18 03/28/18 06:59 06:59 06:59 Intake Total 2163 1818 Output Total 3677 2300 Balance -1514 -482 Result Diagrams: 03/25/18 06:34 03/27/18 04:59 Additional Labs: Accuchecks 03/26/18 03/26/18 21:25 16:12 POC Glucose 132 H 154 H Phys Exam - Physical Examination HEENT: moist MMs PERRL Neck: no JVD Respiratory: no wheezing, no rales, no rhonchi Cardiovascular: RRR, no significant murmur, no rub Gastrointestinal: soft, non-tender, no distention, positive bowel sounds Musculoskeletal: no edema, pulses present Able to move upper extremities bilaterally. 4/5 strength Skin: no rash Dx/Plan (1) History of hemorrhagic stroke with residual hemiparesis Code(s): I69.359 - HEMIPLGA FOLLOWING CEREBRAL INFARCTION AFFECTING UNSP SIDE Status: Acute Comment: Neurosurgery has signed of. will transfer patient to stroke unit. will manage blood pressure and find placement for acute rehab. (2) Electrolyte abnormality Code(s): E87.8 - OTH DISORDERS OF ELECTROLYTE AND FLUID BALANCE, NEC Status: Acute Comment: replete electrolytes (3) Paroxysmal A-fib Code(s): I48.0 - PAROXYSMAL ATRIAL FIBRILLATION Status: Resolved Comment: currently sinus. will follow cardiology recs. patient currently of ASA and not on any anticoag due to intracranial bleed. (4) Hypertension Code(s): I10 - ESSENTIAL (PRIMARY) HYPERTENSION Status: Acute Qualifiers: Hypertension type: essential hypertension Qualified Code(s): I10 - Essential (primary) hypertension Comment: Continue hydralazine, carvedilol, Clonidine. (5) Hyperlipidemia Code(s): E78.5 - HYPERLIPIDEMIA, UNSPECIFIED Status: Chronic (6) Acute hyponatremia Code(s): E87.1 - HYPO-OSMOLALITY AND HYPONATREMIA Status: Acute Comment: continue NS @ 50. will continue to monitor sodium - Plan DVT proph w/SCDs * . Review of Systems - Medications/Allergies Allergies/Adverse Reactions: Allergies Allergy/AdvReac Type Severity Reaction Status Date / Time No Known Drug Allergies Allergy Verified 03/23/18 01:58 Medications: Current Medications Acetaminophen (Tylenol) 650 mg PO Q6H PRN PRN Reason: Fever > 101 or Headache Last Admin: 03/26/18 01:37 Dose: 650 mg Al Hydroxide/Mg Hydroxide (Maalox) 30 ml PO QIDPRN PRN PRN Reason: Dyspepsia Carvedilol (Coreg) 25 mg PO BID-WM [facility] Clonidine (Kqrnhqha-Uot-6 Patch) 0.2 mg TD Q7DAYS [facility] Last Admin: 03/26/18 13:32 Dose: 0.2 mg Dextrose/Water (Dextrose 50%) 25 gm SLOW IVP PRN PRN PRN Reason: Hypoglycemia Docusate Sodium (Colace) 100 mg PO BIDPRN PRN PRN Reason: Constipation Glucagon (Glucagon) 1 mg IM PRN PRN PRN Reason: Hypoglycemia Hydralazine HCl (Apresoline) 10 mg SLOW IVP Q4H PRN PRN Reason: SBP >160 Last Admin: 03/27/18 02:34 Dose: 10 mg Nicardipine HCl 50 mg/ Sodium (Chloride) 250 mls @ 0 mls/hr IVPB INF PRN; Protocol; Titrate PRN Reason: For SBP > 150 or DBP > 90 Last Admin: 03/25/18 04:20 Dose: 250 mls Dextrose/Water (D5w) 1,000 mls @ 0 mls/hr IV .Q0M PRN; As Directed PRN Reason: Hypoglycemia Sodium Chloride (Normal Saline 0.9%) 1,000 mls @ 100 mls/hr IV .Q10H MICHAEL Last Admin: 03/26/18 23:21 Dose: 1,000 mls Insulin Human Lispro (Humalog) 0 units SC .MILD SLIDING SCALE PRN PRN Reason: Mild Correctional Scale Labetalol HCl (Normodyne) 10 mg SLOW IVP Q4H PRN PRN Reason: SBP Greater Than 180 Magnesium Hydroxide (Milk Of Magnesium) 30 ml PO BIDPRN PRN PRN Reason: Constipation Ondansetron HCl (Zofran) 4 mg IVP BIDPRN PRN PRN Reason: Nausea/Vomiting Pantoprazole Sodium (Protonix) 40 mg PO DAILY MICHAEL Potassium Chloride (K-Dur) 40 meq PO 0630,0830 [facility] Stop: 03/27/18 08:31 Last Admin: 03/27/18 06:36 Dose: 40 meq Sodium Chloride (Flush - Normal Saline) 10 ml IVF PRN PRN PRN Reason: Saline Flush Last Admin: 03/23/18 23:12 Dose: 10 ml
--- NOTE | 2018-03-27 08:33 | PRG ---
DATE OF SERVICE: 03/27/2018 This morning she is not moving the right side, but is clearly moving her left side. PHYSICAL EXAMINATION: VITAL SIGNS: Pulse 91, blood pressure 160/68, sats 96%, respirations 18. GENERAL: She is awake, opens her eyes. Her potassium was 2.9, sodium 129. PK normal. CHEST: Chest reveals decreased breath sounds, no wheezing. CARDIAC: Normal S1, S2. No gallops. ABDOMEN: Soft, no masses. IMPRESSION: 1. Intracerebral hemorrhage. 2. Hypertension. 3. Supraventricular tachycardia. PLAN: She can probably be transferred out of the ICU to a monitored bed. She is still a full code. Continue PT, nutrition. Eventually placement.
[2018-03-27] MEDS ORDERED: Pantoprazole 40 MG GRANULES PACKET PO SCH (09:00)
[2018-03-27] MEDS: Sodium Chloride 0.9% 1,000 ML IV SCH ×2 (10:21→17:49)
[2018-03-27] MEDS: Carvedilol 25 MG TAB PO SCH ×2 (10:21→17:49)
--- NOTE | 2018-03-27 12:13 | PDOC.CTH ---
<Darshana Meyers - Last Filed: 03/27/18 12:11> Cardiology Progress Note - Subjective The pt seen and examined. No cardiac complaints. No overnight events. - Objective Vital Signs Temp Pulse Resp BP Pulse Ox 03/27/18 12:00 97.5 F L 03/27/18 08:15 95 03/27/18 08:00 99.7 F H 74 17 97 03/27/18 02:34 63 162/57 H 03/27/18 01:52 98.6 F Admit Weight 139 lb Weight 137 lb 12.623 oz 03/26/18 03/27/18 03/28/18 06:59 06:59 06:59 Intake Total 2163 1818 180 Output Total 3677 2300 240 Balance -1514 -482 -60 - Physical Examination Neck: no JVD present Lungs: CTA Heart: other: (irregular) Abdomen: soft Extremities: other: (No edema) - Telemetry Telemetry Rhythm: SR with V pacing - Labs Result Diagrams: 03/25/18 06:34 03/27/18 04:59 - Assessment/Plan 1. Afib with RVR - remains in SR with Coreg 25mg BID; Not on OAC or ASA due to hx of ICH; cont. to monitor on tele 2. ICH - stable; managed by neurologist 3. HTN - stable with current med 4. Hx of TAVR - Not on Plavix or ASA due to s/p ICH. 5. Hx of DVT and TIA - Not on OAC or ASA due to hx of ICH. 6. Hyperlipidemia - Will resume statin med when her condition is stabl 7. Hyponatremia - 1200ml/day Fluid restriction 8. Hypokalemia - managed by PCP DORETHA reviewed . Review of Systems - Review of Systems Constitutional: reports: no symptoms reported EENTM: reports: no symptoms reported Respiratory: reports: no symptoms reported Cardiac (ROS): reports: no symptoms reported ABD/GI: reports: no symptoms reported : reports: no symptoms reported Musculoskeletal: reports: no symptoms reported <Oliver Nj - Last Filed: 03/27/18 21:24> Cardiology Progress Note - Objective Vital Signs Temp Pulse Pulse Pulse Resp BP BP 03/27/18 20:37 03/27/18 20:00 98.5 F 76 19 03/27/18 18:46 74 03/27/18 17:57 99.9 F H 71 20 03/27/18 16:00 97.5 F L 03/27/18 12:00 97.5 F L 03/27/18 09:25 91 101 H 178/75 H 151/79 H BP Pulse Ox Pulse Ox 03/27/18 20:37 114/53 L 03/27/18 20:00 99/55 L 95 03/27/18 18:46 03/27/18 17:57 169/75 H 96 03/27/18 16:00 03/27/18 12:00 03/27/18 09:25 96 Admit Weight 139 lb Weight 137 lb 12.623 oz 03/26/18 03/27/18 03/28/18 06:59 06:59 06:59 Intake Total 2163 1818 725 Output Total 3677 2300 370 Balance -1514 -482 355 - Labs Result Diagrams: 03/25/18 06:34 03/27/18 04:59 - Assessment/Plan Pt.seen and eval. by me. I agree with the A/P by the GALLEY STRIPPER.We have discussed the pt.and plan. There has been little change from yesterday. Chest clear. RRR.The Echo indicates a normal EF. A well seated bioprosthetic Aortic valve, mild diastolic dysfunction., mild PI,MR,TR. No intracardiac masses.
[2018-03-27] MEDS: Carvedilol 6.25 MG TAB PO SCH (19:34)
[2018-03-27] MEDS ORDERED: Acetaminophen 650 MG Suppository PR PRN (23:48)
[2018-03-28 04:39] LABS: Anion Gap 13 mmol/L (10-20); BUN (Urea Nitrogen) 21 mg/dL (9.8-20.1); Calc. Creatinine Clearance 64 mL/min (70-130); Calcium 8.1 mg/dL (7.8-10.44); Carbon Dioxide 22 mmol/L (23-31); Chloride 99 mmol/L (98-107); Estimated GFR-MDRD Greater than 90; Glucose 119 mg/dL (83-110); Potassium 3.5 mmol/L (3.5-5.1); Sodium 130 mmol/L (136-145)
[2018-03-28] MEDS: hydrALAZINE 20 MG/ML VIAL SLOW IVP PRN ×4 (06:50→20:55)
--- NOTE | 2018-03-28 08:03 | PDOC.PN ---
- Subjective Encounter Start Date: 03/28/18 Encounter Start Time: 08:03 Subjective: seen and examined. Responds to verbal stimuli -: Tolerating diet. Had fever overnight. - Objective MAR Reviewed: Yes Vital Signs & Weight: Vital Signs (12 hours) Temp Pulse Resp BP BP Pulse Ox 03/28/18 07:37 72 182/68 H 03/28/18 07:31 99.2 F 72 20 192/97 H 95 03/28/18 06:50 66 03/28/18 04:00 98.0 F 66 19 175/78 H 96 03/28/18 00:51 98.4 F 03/28/18 00:00 101.3 F H 74 19 142/65 H 93 L 03/27/18 20:40 98.5 F 76 19 95 03/27/18 20:37 114/53 L Weight Admit Weight 139 lb Weight 140 lb 3.2 oz Most Recent Monitor Data Heart Rate from ECG 73 NIBP 146/68 NIBP BP-Mean 85 Respiration from ECG 17 SpO2 96 I&O: 03/27/18 03/28/18 03/29/18 06:59 06:59 06:59 Intake Total 1818 725 Output Total 2300 820 Balance -482 -95 Result Diagrams: 03/25/18 06:34 03/28/18 04:01 Additional Labs: Accuchecks 03/27/18 12:01 POC Glucose 167 H Phys Exam - Physical Examination HEENT: PERRLA, moist MMs, sclera anicteric Neck: no JVD Respiratory: no wheezing, no rales, no rhonchi, clear to auscultation bilateral Cardiovascular: RRR, no rub Gastrointestinal: soft, non-tender, no distention, positive bowel sounds Musculoskeletal: no edema, pulses present Neurological: moves all 4 limbs Skin: no rash Dx/Plan (1) History of hemorrhagic stroke with residual hemiparesis Code(s): I69.359 - HEMIPLGA FOLLOWING CEREBRAL INFARCTION AFFECTING UNSP SIDE Status: Acute Comment: Stable at this time. Awaiting placement. (2) Electrolyte abnormality Code(s): E87.8 - OTH DISORDERS OF ELECTROLYTE AND FLUID BALANCE, NEC Status: Resolved Comment: replete electrolytes (3) Paroxysmal A-fib Code(s): I48.0 - PAROXYSMAL ATRIAL FIBRILLATION Status: Resolved Comment: Cardiology has signed of. Will continue to monitor and await for placement. (4) Hypertension Code(s): I10 - ESSENTIAL (PRIMARY) HYPERTENSION Status: Acute Qualifiers: Hypertension type: essential hypertension Qualified Code(s): I10 - Essential (primary) hypertension Comment: Gave dose of Hydralazine/ lebatalol in the Am. will Continue hydralazine, carvedilol, Clonidine. (5) Hyperlipidemia Code(s): E78.5 - HYPERLIPIDEMIA, UNSPECIFIED Status: Chronic Comment: Will start statin (6) Acute hyponatremia Code(s): E87.1 - HYPO-OSMOLALITY AND HYPONATREMIA Status: Acute Comment: discontinue fluids. - Plan * . Review of Systems - Medications/Allergies Allergies/Adverse Reactions: Allergies Allergy/AdvReac Type Severity Reaction Status Date / Time No Known Drug Allergies Allergy Verified 03/23/18 01:58 Medications: Current Medications Acetaminophen (Tylenol) 650 mg PO Q6H PRN PRN Reason: Fever > 101 or Headache Last Admin: 03/26/18 01:37 Dose: 650 mg Acetaminophen (Tylenol) 650 mg [place] Q6H PRN PRN Reason: Headache/Fever or Pain Last Admin: 03/27/18 23:58 Dose: 650 mg Al Hydroxide/Mg Hydroxide (Maalox) 30 ml PO QIDPRN PRN PRN Reason: Dyspepsia Carvedilol (Coreg) 25 mg PO BID-WM [facility] Last Admin: 03/27/18 17:49 Dose: 25 mg Clonidine (Hcxlrnei-Pjb-4 Patch) 0.2 mg TD Q7DAYS [facility] Last Admin: 03/26/18 13:32 Dose: 0.2 mg Dextrose/Water (Dextrose 50%) 25 gm SLOW IVP PRN PRN PRN Reason: Hypoglycemia Docusate Sodium (Colace) 100 mg PO BIDPRN PRN PRN Reason: Constipation Famotidine (Pepcid) 20 mg SLOW IVP DAILY [facility] Glucagon (Glucagon) 1 mg IM PRN PRN PRN Reason: Hypoglycemia Hydralazine HCl (Apresoline) 10 mg SLOW IVP Q4H PRN PRN Reason: SBP >160 Last Admin: 03/28/18 06:50 Dose: 10 mg Nicardipine HCl 50 mg/ Sodium (Chloride) 250 mls @ 0 mls/hr IVPB INF PRN; Protocol; Titrate PRN Reason: For SBP > 150 or DBP > 90 Last Admin: 03/25/18 04:20 Dose: 250 mls Dextrose/Water (D5w) 1,000 mls @ 0 mls/hr IV .Q0M PRN; As Directed PRN Reason: Hypoglycemia Sodium Chloride (Normal Saline 0.9%) 1,000 mls @ 50 mls/hr IV .Q20H [facility] Last Admin: 03/27/18 17:49 Dose: 1,000 mls Insulin Human Lispro (Humalog) 0 units SC .MILD SLIDING SCALE PRN PRN Reason: Mild Correctional Scale Labetalol HCl (Normodyne) 10 mg SLOW IVP Q4H PRN PRN Reason: SBP Greater Than 180 Last Admin: 03/28/18 07:37 Dose: 10 mg Magnesium Hydroxide (Milk Of Magnesium) 30 ml PO BIDPRN PRN PRN Reason: Constipation Ondansetron HCl (Zofran) 4 mg IVP BIDPRN PRN PRN Reason: Nausea/Vomiting Sodium Chloride (Flush - Normal Saline) 10 ml IVF PRN PRN PRN Reason: Saline Flush Last Admin: 03/23/18 23:12 Dose: 10 ml
[2018-03-28] MEDS: Famotidine/PF 20 mg/2ml Vial SLOW IVP SCH (09:08)
[2018-03-28] MEDS: Carvedilol 25 MG TAB PO SCH ×2 (09:08→17:28)
--- NOTE | 2018-03-28 09:16 | PRG ---
DATE OF SERVICE: 03/28/2018 This is an 87-year-old female who was transferred out of the ICU yesterday to the stroke unit. She i s verbalizing. PHYSICAL EXAMINATION: VITAL SIGNS: Blood pressure is still elevated 182/68, temperature 99, sats 100% on room air, respira tions 20. CHEST: Chest reveals decreased breath sounds, no wheezing. CARDIAC: Normal S1, S2. ABDOMEN: Soft, no masses. LABORATORY: Sodium is 130. Electrolytes are normal. IMPRESSION: 1. Cerebrovascular accident. 2. Hypertensive bleed. 3. Coronary artery disease. 4. Supraventricular tachycardia. 5. Hypertension. PLAN: Continue PT. Continue supportive care. Pulmonary will follow at a distance. Please call as needed.
[2018-03-28] MEDS: Sodium Chloride 0.9% 1,000 ML IV SCH (09:21)
[2018-03-28] MEDS: Acetaminophen 325 MG TAB PO PRN ×2 (10:35→20:55)
--- NOTE | 2018-03-28 12:20 | PDOC.CTH ---
<Darshana Meyers - Last Filed: 03/28/18 12:18> Cardiology Progress Note - Subjective The pt seen and examined. No overnight events. She is still drowsy. - Objective Vital Signs Temp Pulse Resp BP BP Pulse Ox 03/28/18 11:36 99.2 F 69 20 142/63 H 94 L 03/28/18 10:32 72 182/68 H 03/28/18 09:21 99.1 F 72 20 95 03/28/18 07:37 72 182/68 H 03/28/18 07:31 99.2 F 72 20 192/97 H 95 03/28/18 06:50 66 03/28/18 04:00 98.0 F 66 19 175/78 H 96 03/28/18 00:51 98.4 F Admit Weight 139 lb Weight 140 lb 3.2 oz 03/27/18 03/28/18 03/29/18 06:59 06:59 06:59 Intake Total 1818 725 Output Total 2300 820 Balance -482 -95 - Physical Examination Lungs: other: (diminished at bases) Heart: RRR Abdomen: soft Extremities: other: (mild BLE edema) - Labs Result Diagrams: 03/25/18 06:34 03/28/18 04:01 - Assessment/Plan 1. Afib with RVR - remains in SR with Coreg 25mg BID; Not on OAC or ASA due to hx of ICH; cont. to monitor on tele 2. ICH - stable; managed by neurologist 3. HTN - stable with current med 4. Hx of TAVR - Not on Plavix or ASA due to s/p ICH. 5. Hx of DVT and TIA - Not on OAC or ASA due to hx of ICH. 6. Hyperlipidemia - Will resume statin med when her condition is stabl 7. Hyponatremia - 1200ml/day Fluid restriction 8. Hypokalemia - managed by PCP MAR reviewed Review of Systems - Review of Systems Constitutional: reports: no symptoms reported EENTM: reports: no symptoms reported Respiratory: reports: no symptoms reported Cardiac (ROS): reports: no symptoms reported ABD/GI: reports: no symptoms reported : reports: no symptoms reported Musculoskeletal: reports: no symptoms reported <Oliver Nj - Last Filed: 03/28/18 14:00> Cardiology Progress Note - Objective Vital Signs Temp Pulse Pulse Pulse Pulse Resp BP 03/28/18 11:36 99.2 F 69 20 03/28/18 10:32 72 182/68 H 03/28/18 09:21 99.1 F 72 20 03/28/18 08:45 72 68 71 03/28/18 07:37 72 182/68 H 03/28/18 07:31 99.2 F 72 20 03/28/18 06:50 66 03/28/18 04:00 98.0 F 66 19 BP BP BP BP Pulse Ox 03/28/18 11:36 142/63 H 94 L 03/28/18 10:32 03/28/18 09:21 95 03/28/18 08:45 192/98 H 169/74 H 184/81 H 03/28/18 07:37 03/28/18 07:31 192/97 H 95 03/28/18 06:50 03/28/18 04:00 175/78 H 96 Admit Weight 139 lb Weight 140 lb 3.2 oz 03/27/18 03/28/18 03/29/18 06:59 06:59 06:59 Intake Total 1818 725 Output Total 2300 820 Balance -482 -95 - Labs Result Diagrams: 03/25/18 06:34 03/28/18 04:01 - Assessment/Plan Pt. seen and eval. by me. I agree with the A/P by the [employer]. She remains in NSR. Continue present cardiac meds. I will sign off. If any further cardiac issues please consult us again. Chest clear. RRR. Neuro : no change.
[2018-03-28] MEDS: Atorvastatin Calcium 40 MG TAB PO SCH (20:55)
[2018-03-28] MEDS: Docusate 100 MG CAP PO PRN (20:55)
[2018-03-29] MEDS: hydrALAZINE 20 MG/ML VIAL SLOW IVP PRN (07:59)
[2018-03-29] MEDS: Famotidine/PF 20 mg/2ml Vial SLOW IVP SCH (08:02)
[2018-03-29] MEDS: Carvedilol 25 MG TAB PO SCH ×2 (08:02→18:03)
[2018-03-29] MEDS: Atorvastatin Calcium 40 MG TAB PO SCH (21:57)
--- NOTE | 2018-03-29 23:27 | PDOC.PN ---
- Subjective Encounter Start Date: 03/29/18 Encounter Start Time: 12:20 Subjective: Seen and examined. NAD - Objective MAR Reviewed: Yes Vital Signs & Weight: Vital Signs (12 hours) Temp Pulse Resp BP Pulse Ox 03/29/18 20:00 99.4 F 64 19 168/68 H 96 03/29/18 19:03 60 129/61 03/29/18 18:05 64 159/69 H 03/29/18 15:46 67 18 90 L 03/29/18 15:42 99.4 F 03/29/18 11:31 99.9 F H 59 L 20 151/69 H 98 Weight Admit Weight 139 lb Weight 138 lb 4.8 oz Most Recent Monitor Data Heart Rate from ECG 73 NIBP 146/68 NIBP BP-Mean 85 Respiration from ECG 17 SpO2 96 I&O: 03/28/18 03/29/18 03/30/18 06:59 06:59 06:59 Intake Total 725 994 50 Output Total 820 1000 450 Balance -95 -6 -400 Result Diagrams: 03/25/18 06:34 03/28/18 04:01 Phys Exam - Physical Examination Constitutional: NAD HEENT: PERRLA, moist MMs, sclera anicteric Neck: no JVD Respiratory: no wheezing, no rales, no rhonchi, clear to auscultation bilateral Cardiovascular: RRR, no significant murmur, no rub Gastrointestinal: non-tender, no distention Musculoskeletal: no edema, pulses present Neurological: moves all 4 limbs wiggle her toes. Skin: no rash Dx/Plan (1) History of hemorrhagic stroke with residual hemiparesis Code(s): I69.359 - HEMIPLGA FOLLOWING CEREBRAL INFARCTION AFFECTING UNSP SIDE Status: Acute Comment: Stable at this time. Awaiting placement. (2) Electrolyte abnormality Code(s): E87.8 - OTH DISORDERS OF ELECTROLYTE AND FLUID BALANCE, NEC Status: Resolved Comment: replete electrolytes (3) Paroxysmal A-fib Code(s): I48.0 - PAROXYSMAL ATRIAL FIBRILLATION Status: Resolved Comment: Cardiology has signed of. Will continue to monitor and await for placement. (4) Hypertension Code(s): I10 - ESSENTIAL (PRIMARY) HYPERTENSION Status: Acute Qualifiers: Hypertension type: essential hypertension Qualified Code(s): I10 - Essential (primary) hypertension Comment: Gave dose of Hydralazine/ lebatalol in the Am. will Continue hydralazine, carvedilol, Clonidine. (5) Hyperlipidemia Code(s): E78.5 - HYPERLIPIDEMIA, UNSPECIFIED Status: Chronic Comment: Will start statin (6) Acute hyponatremia Code(s): E87.1 - HYPO-OSMOLALITY AND HYPONATREMIA Status: Acute Comment: discontinue fluids. - Plan * . Review of Systems - Medications/Allergies Allergies/Adverse Reactions: Allergies Allergy/AdvReac Type Severity Reaction Status Date / Time No Known Drug Allergies Allergy Verified 03/23/18 01:58 Medications: Current Medications Acetaminophen (Tylenol) 650 mg PO Q6H PRN PRN Reason: Fever > 101 or Headache Last Admin: 03/28/18 20:55 Dose: 650 mg Acetaminophen (Tylenol) 650 mg [place] Q6H PRN PRN Reason: Headache/Fever or Pain Last Admin: 03/27/18 23:58 Dose: 650 mg Al Hydroxide/Mg Hydroxide (Maalox) 30 ml PO QIDPRN PRN PRN Reason: Dyspepsia Atorvastatin Calcium (Lipitor) 80 mg PO HS [facility] Last Admin: 03/29/18 21:57 Dose: 80 mg Carvedilol (Coreg) 25 mg PO BID-WM [facility] Last Admin: 03/29/18 18:03 Dose: 25 mg Clonidine (Azekhlsq-Rxj-2 Patch) 0.2 mg TD Q7DAYS [facility] Last Admin: 03/26/18 13:32 Dose: 0.2 mg Dextrose/Water (Dextrose 50%) 25 gm SLOW IVP PRN PRN PRN Reason: Hypoglycemia Docusate Sodium (Colace) 100 mg PO BIDPRN PRN PRN Reason: Constipation Last Admin: 03/28/18 20:55 Dose: 100 mg Famotidine (Pepcid) 20 mg SLOW IVP DAILY [facility] Last Admin: 03/29/18 08:02 Dose: 20 mg Glucagon (Glucagon) 1 mg IM PRN PRN PRN Reason: Hypoglycemia Hydralazine HCl (Apresoline) 10 mg SLOW IVP Q4H PRN PRN Reason: SBP >160 Last Admin: 03/29/18 07:59 Dose: 10 mg Nicardipine HCl 50 mg/ Sodium (Chloride) 250 mls @ 0 mls/hr IVPB INF PRN; Protocol; Titrate PRN Reason: For SBP > 150 or DBP > 90 Last Admin: 03/25/18 04:20 Dose: 250 mls Dextrose/Water (D5w) 1,000 mls @ 0 mls/hr IV .Q0M PRN; As Directed PRN Reason: Hypoglycemia Insulin Human Lispro (Humalog) 0 units SC .MILD SLIDING SCALE PRN PRN Reason: Mild Correctional Scale Labetalol HCl (Normodyne) 10 mg SLOW IVP Q4H PRN PRN Reason: SBP Greater Than 180 Last Admin: 03/28/18 07:37 Dose: 10 mg Magnesium Hydroxide (Milk Of Magnesium) 30 ml PO BIDPRN PRN PRN Reason: Constipation Last Admin: 03/28/18 14:33 Dose: 30 ml Ondansetron HCl (Zofran) 4 mg IVP BIDPRN PRN PRN Reason: Nausea/Vomiting Sodium Chloride (Flush - Normal Saline) 10 ml IVF PRN PRN PRN Reason: Saline Flush Last Admin: 03/23/18 23:12 Dose: 10 ml
[2018-03-30] MEDS: hydrALAZINE 20 MG/ML VIAL SLOW IVP PRN ×3 (03:09→16:13)
[2018-03-30] MEDS: Carvedilol 25 MG TAB PO SCH ×2 (08:56→18:15)
[2018-03-30] MEDS: Famotidine/PF 20 mg/2ml Vial SLOW IVP SCH (08:57)
[2018-03-30] MEDS: Sodium Chloride 0.9% 1,000 ML IV SCH (10:38)
[2018-03-30] MEDS: Docusate 100 MG CAP PO PRN (10:46)
[2018-03-30] MEDS ORDERED: Fleet Enema 133 ML BOT FS SCH (15:45)
--- NOTE | 2018-03-30 18:14 | PDOC.PN ---
- Subjective Encounter Start Date: 03/29/18 Encounter Start Time: 17:15 Seen and examined with in the room. No acute events overnight. Tolerating diet. Has not had bowel movement in a while. - Objective Resuscitation Status: Resuscitation Status DNR:Do Not Resuscitate MAR Reviewed: Yes Vital Signs & Weight: Vital Signs (12 hours) Temp Pulse Pulse Pulse Resp BP BP 03/30/18 16:13 65 03/30/18 15:46 100 F H 65 16 03/30/18 11:51 98.1 F 60 14 03/30/18 09:04 65 64 160/68 H 186/81 H 03/30/18 08:57 68 03/30/18 07:58 98.4 F 68 14 03/30/18 07:39 98.4 F 68 14 BP Pulse Ox 03/30/18 16:13 03/30/18 15:46 177/85 H 95 03/30/18 11:51 148/71 H 94 L 03/30/18 09:04 03/30/18 08:57 03/30/18 07:58 95 03/30/18 07:39 186/81 H 95 Weight Admit Weight 139 lb Weight 135 lb 3.2 oz Most Recent Monitor Data Heart Rate from ECG 73 NIBP 146/68 NIBP BP-Mean 85 Respiration from ECG 17 SpO2 96 I&O: 03/29/18 03/30/18 03/31/18 06:59 06:59 06:59 Intake Total 994 50 50 Output Total 1000 450 375 Balance -6 -400 -325 Result Diagrams: 03/25/18 06:34 03/28/18 04:01 Dx/Plan (1) Constipation Code(s): K59.00 - CONSTIPATION, UNSPECIFIED Status: Acute Comment: Will give Dolculax for constipation. (2) History of hemorrhagic stroke with residual hemiparesis Code(s): I69.359 - HEMIPLGA FOLLOWING CEREBRAL INFARCTION AFFECTING UNSP SIDE Status: Acute Comment: Stable at this time. Awaiting placement. (3) Electrolyte abnormality Code(s): E87.8 - OTH DISORDERS OF ELECTROLYTE AND FLUID BALANCE, NEC Status: Resolved Comment: replete electrolytes (4) Paroxysmal A-fib Code(s): I48.0 - PAROXYSMAL ATRIAL FIBRILLATION Status: Resolved Comment: Cardiology has signed of. Will continue to monitor and await for placement. (5) Hypertension Code(s): I10 - ESSENTIAL (PRIMARY) HYPERTENSION Status: Acute Qualifiers: Hypertension type: essential hypertension Qualified Code(s): I10 - Essential (primary) hypertension Comment: Gave dose of Hydralazine/ lebatalol in the Am. will Continue hydralazine, carvedilol, Clonidine. (6) Hyperlipidemia Code(s): E78.5 - HYPERLIPIDEMIA, UNSPECIFIED Status: Chronic Comment: Will start statin - Plan * . Review of Systems - Review of Systems Constitutional: negative: fever, chills, sweats, weakness, malaise, other Eyes: negative: Pain, Vision Change, Conjunctivae Inflammation, Eyelid Inflammation, Redness, Other ENT: negative: Ear Pain, Ear Discharge, Nose Pain, Nose Discharge, Nose Congestion, Mouth Pain, Mouth Swelling, Throat Pain, Throat Swelling, Other Respiratory: negative: Cough, Dry, Shortness of Breath, Hemoptysis, SOB with Excertion, Pleuritic Pain, Sputum, Wheezing Cardiovascular: negative: chest pain, palpitations, orthopnea, paroxysmal nocturnal dyspnea, edema, light headedness, other Gastrointestinal: negative: Nausea, Vomiting, Abdominal Pain, Diarrhea, Constipation, Melena, Hematochezia, Other Genitourinary: negative: Dysuria, Frequency, Incontinence, Hematuria, Retention , Other Musculoskeletal: negative: Neck Pain, Shoulder Pain, Arm Pain, Back Pain, Hand Pain, Leg Pain, Foot Pain, Other Skin: negative: Rash, Lesions, Ivan, Bruising, Other Neurological: negative: Weakness, Numbness, Incoordination, Change in Speech, Confusion, Seizures, Other - Medications/Allergies Allergies/Adverse Reactions: Allergies Allergy/AdvReac Type Severity Reaction Status Date / Time No Known Drug Allergies Allergy Verified 03/23/18 01:58 Medications: Current Medications Acetaminophen (Tylenol) 650 mg PO Q6H PRN PRN Reason: Fever > 101 or Headache Last Admin: 03/28/18 20:55 Dose: 650 mg Acetaminophen (Tylenol) 650 mg [place] Q6H PRN PRN Reason: Headache/Fever or Pain Last Admin: 03/27/18 23:58 Dose: 650 mg Al Hydroxide/Mg Hydroxide (Maalox) 30 ml PO QIDPRN PRN PRN Reason: Dyspepsia Atorvastatin Calcium (Lipitor) 80 mg PO HS [facility] Last Admin: 03/29/18 21:57 Dose: 80 mg Carvedilol (Coreg) 25 mg PO BID-WM [facility] Last Admin: 03/30/18 08:56 Dose: 25 mg Clonidine (Yyalvroj-Usn-8 Patch) 0.2 mg TD Q7DAYS [facility] Last Admin: 03/26/18 13:32 Dose: 0.2 mg Dextrose/Water (Dextrose 50%) 25 gm SLOW IVP PRN PRN PRN Reason: Hypoglycemia Docusate Sodium (Colace) 100 mg PO BIDPRN PRN PRN Reason: Constipation Last Admin: 03/30/18 10:46 Dose: 100 mg Famotidine (Pepcid) 20 mg SLOW IVP DAILY [facility] Last Admin: 03/30/18 08:57 Dose: 20 mg Glucagon (Glucagon) 1 mg IM PRN PRN PRN Reason: Hypoglycemia Hydralazine HCl (Apresoline) 10 mg SLOW IVP Q4H PRN PRN Reason: SBP >160 Last Admin: 03/30/18 16:13 Dose: 10 mg Nicardipine HCl 50 mg/ Sodium (Chloride) 250 mls @ 0 mls/hr IVPB INF PRN; Protocol; Titrate PRN Reason: For SBP > 150 or DBP > 90 Last Admin: 03/25/18 04:20 Dose: 250 mls Dextrose/Water (D5w) 1,000 mls @ 0 mls/hr IV .Q0M PRN; As Directed PRN Reason: Hypoglycemia Insulin Human Lispro (Humalog) 0 units SC .MILD SLIDING SCALE PRN PRN Reason: Mild Correctional Scale Labetalol HCl (Normodyne) 10 mg SLOW IVP Q4H PRN PRN Reason: SBP Greater Than 180 Last Admin: 03/28/18 07:37 Dose: 10 mg Magnesium Hydroxide (Milk Of Magnesium) 30 ml PO BIDPRN PRN PRN Reason: Constipation Last Admin: 03/28/18 14:33 Dose: 30 ml Ondansetron HCl (Zofran) 4 mg IVP BIDPRN PRN PRN Reason: Nausea/Vomiting Sodium Chloride (Flush - Normal Saline) 10 ml IVF PRN PRN PRN Reason: Saline Flush Last Admin: 03/30/18 16:14 Dose: 10 ml
--- NOTE | 2018-03-30 18:19 | PDOC.EVN ---
Event Note - Event Note Event Note: Spend 20 minutes discussing Goals of care with . initially wanted CPR but no intubation. Upon further discussion with family has agreed to DNI/DNR since told him that DNI/DNR is her wish. However we made it clear that we will always reach out to when anything acute transpires.
[2018-03-30] MEDS: Atorvastatin Calcium 40 MG TAB PO SCH (22:49)
--- NOTE | 2018-03-30 22:59 | EKG ---
Test Reason : Blood Pressure : / mmHG Vent. Rate : 123 BPM Atrial Rate : 357 BPM P-R Int : 000 ms QRS Dur : 086 ms QT Int : 318 ms P-R-T Axes : 000 070 012 degrees QTc Int : 455 ms Atrial fibrillation with rapid ventricular response with premature ventricular or aberrantly conducte d complexes Nonspecific ST abnormality Abnormal ECG When compared with ECG of 22-MAR-2018 23:05, (Unconfirmed) Atrial fibrillation has replaced Sinus rhythm Nonspecific T wave abnormality, worse in Inferior leads Nonspecific T wave abnormality now evident in Lateral leads Confirmed by Briseida FREEMAN ([id number]) on 03/30/2018 10:58:33 PM Referred By: THIAGO Confirmed By:Briseida FREEMAN
[2018-03-31] MEDS: Carvedilol 25 MG TAB PO SCH ×2 (08:31→16:53)
[2018-03-31] MEDS: hydrALAZINE 20 MG/ML VIAL SLOW IVP PRN ×3 (08:31→22:12)
[2018-03-31] MEDS: Famotidine/PF 20 mg/2ml Vial SLOW IVP SCH (08:31)
[2018-03-31] MEDS ORDERED: Artificial Tears 18 DROP/0.9 ML EA EYE PRN (13:24)
--- NOTE | 2018-03-31 13:24 | PDOC.PN ---
- Subjective Encounter Start Date: 03/31/18 Encounter Start Time: 13:22 Subjective: no appropriate responce - Objective Resuscitation Status: Resuscitation Status DNR:Do Not Resuscitate MAR Reviewed: Yes Vital Signs & Weight: Vital Signs (12 hours) Temp Pulse Pulse Pulse Resp BP BP 03/31/18 12:00 97.8 F 63 20 03/31/18 09:05 60 63 140/68 03/31/18 08:31 61 209/104 H 03/31/18 08:30 98.4 F 61 20 03/31/18 08:00 98.4 F 61 20 03/31/18 03:57 99.6 F 62 20 BP BP Pulse Ox 03/31/18 12:00 116/57 L 97 03/31/18 09:05 190/77 H 03/31/18 08:31 03/31/18 08:30 95 03/31/18 08:00 209/104 H 95 03/31/18 03:57 155/65 H 95 Weight Admit Weight 139 lb Weight 135 lb 3.2 oz Most Recent Monitor Data Heart Rate from ECG 73 NIBP 146/68 NIBP BP-Mean 85 Respiration from ECG 17 SpO2 96 I&O: 03/30/18 03/31/18 04/01/18 06:59 06:59 06:59 Intake Total 50 150 600 Output Total 450 900 Balance -400 -750 600 Result Diagrams: 03/25/18 06:34 03/28/18 04:01 Phys Exam - Physical Examination Neck: no JVD Respiratory: clear to auscultation bilateral Cardiovascular: no significant murmur Gastrointestinal: soft, positive bowel sounds Musculoskeletal: edema present Dx/Plan (1) Hemorrhagic stroke Code(s): I61.9 - NONTRAUMATIC INTRACEREBRAL HEMORRHAGE, UNSPECIFIED Status: Acute (2) Hypertension Code(s): I10 - ESSENTIAL (PRIMARY) HYPERTENSION Status: Acute Qualifiers: Hypertension type: essential hypertension Qualified Code(s): I10 - Essential (primary) hypertension Comment: Gave dose of Hydralazine/ lebatalol in the Am. will Continue hydralazine, carvedilol, Clonidine. (3) Hyperlipidemia Code(s): E78.5 - HYPERLIPIDEMIA, UNSPECIFIED Status: Chronic Comment: Will start statin (4) Electrolyte abnormality Code(s): E87.8 - OTH DISORDERS OF ELECTROLYTE AND FLUID BALANCE, NEC Status: Resolved Comment: replete electrolytes (5) Paroxysmal A-fib Code(s): I48.0 - PAROXYSMAL ATRIAL FIBRILLATION Status: Chronic Comment: Cardiology has signed of. Will continue to monitor and await for placement. - Plan cont current plan of care, plan discussed w/ family, PT/OT placement in progress * .
[2018-03-31 13:27] VITALS: BMI 23.2
[2018-03-31] MEDS: Atorvastatin Calcium 40 MG TAB PO SCH (22:12)
[2018-04-01] MEDS: hydrALAZINE 20 MG/ML VIAL SLOW IVP PRN ×2 (01:26→12:00)
[2018-04-01] MEDS: Acetaminophen 325 MG TAB PO PRN (01:51)
[2018-04-01] MEDS: Carvedilol 25 MG TAB PO SCH ×2 (08:05→16:21)
[2018-04-01] MEDS: Famotidine/PF 20 mg/2ml Vial SLOW IVP SCH (08:05)
--- NOTE | 2018-04-01 12:37 | DIS ---
TRANSFER OF CARE NOTE DATE OF DISCHARGE: 04/01/2018 DISCHARGE DISPOSITION: Discharged to [facility] in [place] under the care of Dr. Ara Escobar. FINAL DIAGNOSES: 1. Nontraumatic intracerebral hemorrhage. 2. Aphasia. 3. Right hemiplegia. 4. Paroxysmal atrial fibrillation. 5. Hypertension. 6. Dyslipidemia. ROUTINE MEDICATIONS HELD: Aspirin and Plavix. DISCHARGE MEDICATIONS: Clonidine patch TTS 1 on skin, change every 7 days, Coreg 25 mg p.o. b.i.d., Lipitor 80 mg at bedtime, alendronate 70 mg once a week, Milk of Magnesia 30 mL p.o. b.i.d. p.r.n., v itamin D3 one tablet p.o. b.i.d., Artificial Tears, Acetaminophen 650 mg p.o. q.6 hours p.r.n. ALLERGIES: No known drug allergies. CODE STATUS: DNR. DIET: Regular. HOSPITAL COURSE: The patient was admitted to [facility] by Neurosurgery. The patient had a headache, found to have a large intraparenchymal hematoma and transferred to [place]. She was nonverb al. She would squeeze on command. Her aspirin and Plavix were discontinued. She was seen in [facility] by Dr. Yoandy Molina, Pulmonology, Dr. Braden Nj, [facility] LABORATORY: Her admitting laboratory; white count 15.4, hemoglobin 14.0, platelet count 232,000. Ad mitting INR 0.9. Admitting chemistries; sodium 131, potassium 3.7, BUN 11, creatinine 0.67, blood peguero gar 174. She was monitored during her hospital stay, seen by PT, OT. Blood pressure was controlled with Coreg and clonidine. She in the intermediate period in ICU required nicardipine for blood pressure contro l. Echocardiogram was done. EF 55-60%, some diastolic dysfunction. Her brain CT demonstrated a lar ge intraparenchymal hemorrhage, left parietal occipital lobe, some subarachnoid hemorrhage in the rig ht frontal area, extensive intraventricular hemorrhage, some midline shift. She had an episode of at rial fibrillation during the early hospital stay. She converted back to sinus rhythm spontaneously. Dr. Molina's consultation for intensive care automobile contract clerk support, Pulmonology followed during the admi ssion as did the [facility]. CURRENT LABORATORY: Most recent electrolytes revealed continuing low sodium at 129, a mildly decreas ed potassium at 3.2, BUN of 8, creatinine 0.53. Blood sugars have normalized. Hemoglobin A1c was 5. 4, calcium was in the normal range. She has been aggressively treated with PT, OT, and Speech. She is being transferred to the [facility] under the care of Dr. Ara Escobar. Her prognosis for significant recovery of function is guarded. She is nonverbal. Marked decreased a ctivity on the right arm and with a marked loss of vision.
[2018-04-01 15:54] VITALS: TEMP 98.5
[2018-04-01 17:31] VITALS: BP 145/59
== END 2018-04-01 18:32 | DRG 64 ==
LOC: ERS 22:35 → CCU 03-23 01:38 → 2SE 03-27 18:07
PROVIDERS: ADMIT Internal Medicine; ATTEND Neurological Surgery
PROC: B246ZZZ Ultrasonography of Right and Left Heart (ICD-10-PCS; principal; 2018-03-27)
DX: I61.8 Other nontraumatic intracerebral hemorrhage (principal); G93.6 Cerebral edema; G81.91 Hemiplegia, unspecified affecting right dominant side; E87.1 Hypo-osmolality and hyponatremia; I47.1 Supraventricular tachycardia; R47.01 Aphasia; I69.359 Hemiplegia and hemiparesis following cerebral infarction affecting unspecified side; I62.00 Nontraumatic subdural hemorrhage, unspecified; I48.0 Paroxysmal atrial fibrillation; I10 Essential (primary) hypertension; E78.5 Hyperlipidemia, unspecified; Z66 Do not resuscitate; K59.00 Constipation, unspecified; E87.6 Hypokalemia; Z86.718 Personal history of other venous thrombosis and embolism; I25.10 Atherosclerotic heart disease of native coronary artery without angina pectoris; Z79.01 Long term (current) use of anticoagulants; M85.80 Other specified disorders of bone density and structure, unspecified site; Z79.82 Long term (current) use of aspirin
CPT/HCPCS: 36415; 36416; 36430; 70450; 80048; 80053; 83036; 83735; 84300; 84443; 85025; 85610; 85730; 86850; 86900; 86901; 93005; 93010; 93306; 93970; 94760; 96365; 96366; 96375; C9113; G8978-GP-CM; G8979-GP-CJ; G8987-GO-CL; G8988-GO-CK; G9165-GN-CM; G9166-GN-CI; J0360; J1160; J2405; J3010; J3480; J3490; J7050; P9035; S0028

== ENCOUNTER 2018-04-11 15:12 | Inpatient (IN) | payer MEDICARE, OTHER ==
[2018-04-11 15:44] LABS: Bilirubin Negative (Negative); Blood, Urine Moderate (Negative); Clarity TURBID (Clear); Glucose, Urine (Dipstick) Negative (Negative); Leukocyte Large (Negative); Nitrite Positive (Negative); Protein, Urine (Dipstick) Negative (Neg-Trace); Specific Gravity, Urine 1.008 (1.002-1.036); pH, Urine 8.5 (5.0-9.0)
[2018-04-11 15:47] LABS: Bacteria/HPF 3+ HPF (None Seen); Pathc Cast-AUWi Flag 0.58 (0-2.49); Squamous Epithelial 0-3 HPF (0-3)
[2018-04-11 16:04] LABS: Crystals/HPF 2+ TRIPLE PHOS HPF (Negative); Hyaline Casts/LPF NONE SEEN LPF (0-3 Hyaline)
[2018-04-11 16:13] LABS: #Lymphocytes 0.9 thou/uL (1.20-3.40); #Monocytes 0.6 thou/uL (0.11-0.59); %Basophils 0.3 % (0.0-1.0); %Eosinophils 0.1 % (0.0-10.0); %Lymphocytes 13.6 % (21.0-51.0); %Monocytes 9.4 % (0.0-10.0); %Neutrophils 76.7 % (42.0-75.0); Hemoglobin 13.4 g/dL (12.0-16.0); Mean Corpuscular HGB CONC 35.6 g/dL (32.0-36.0); Mean Corpuscular Hemoglobin 32.3 pg (27.0-31.0); Mean Corpuscular Volume 90.8 fL (78.0-98.0); Mean Platelet Volume 5.6 fL (7.4-10.4); Platelet Count 166 thou/uL (130-400); RBC Distribution Width 11.4 % (11.5-14.5); Red Blood Cell (RBC) Count 4.15 mill/uL (4.20-5.40); White Blood Cell (WBC) Count 6.5 thou/uL (4.8-10.8)
[2018-04-11 16:36] LABS: ALT (SGPT) 32 U/L (8-55); AST (SGOT) 28 U/L (5-34); Albumin 3.4 g/dL (3.4-4.8); Alkaline Phosphatase 102 U/L (40-150); Anion Gap 13 mmol/L (10-20); BUN (Urea Nitrogen) 8 mg/dL (9.8-20.1); Bilirubin, Total 0.9 mg/dL (0.2-1.2); Calc. Creatinine Clearance 0 mL/min (70-130); Calcium 8.8 mg/dL (7.8-10.44); Carbon Dioxide 27 mmol/L (23-31); Chloride 91 mmol/L (98-107); Estimated GFR-MDRD Greater than 90; Globulin 2.6 g/dL (2.4-3.5); Glucose 122 mg/dL (83-110); Magnesium 1.8 mg/dL (1.6-2.6); Potassium 3.5 mmol/L (3.5-5.1); Sodium 127 mmol/L (136-145)
[2018-04-11 16:39] LABS: CKMB 1.1 ng/mL (0-6.6); Troponin I Less than 0.010 ng/mL (< 0.028)
[2018-04-11] MEDS ORDERED: Sodium Chloride 0.45% 1,000 ML IV SCH (19:15)
[2018-04-11 19:38] VITALS: BMI 20.9
[2018-04-11] MEDS: hydrALAZINE 20 MG/ML VIAL SLOW IVP PRN (20:44)
[2018-04-12] MEDS ORDERED: Bisacodyl 5 MG TAB PO PRN (00:26)
[2018-04-12] MEDS ORDERED: Calcium Carbonate 500 MG ChewTAB PO PRN (00:26)
[2018-04-12] MEDS ORDERED: Senokot 8.6 MG TAB PO PRN (00:26)
[2018-04-12] MEDS ORDERED: Artificial Tears 18 DROP/0.9 ML EA EYE PRN (00:29)
[2018-04-12] MEDS ORDERED: Milk Of Magnesia 30 ML UDCUP PO PRN (00:29)
[2018-04-12 01:12] LABS: Anion Gap 12 mmol/L (10-20); BUN (Urea Nitrogen) 6 mg/dL (9.8-20.1); Calc. Creatinine Clearance 69 mL/min (70-130); Calcium 7.9 mg/dL (7.8-10.44); Carbon Dioxide 28 mmol/L (23-31); Chloride 93 mmol/L (98-107); Estimated GFR-MDRD Greater than 90; Glucose 110 mg/dL (83-110); Potassium 3.2 mmol/L (3.5-5.1); Sodium 130 mmol/L (136-145)
[2018-04-12] MEDS: cefTRIAXone\\ROCEPHIN 1 GM in Sodium Chloride 0.9% 100 ML IVPB SCH (02:07)
[2018-04-12] MEDS: Sodium Chloride 0.9% 1,000 ML IV SCH ×2 (02:07→14:20)
[2018-04-12] MEDS: Acetaminophen 325 MG TAB PO PRN ×2 (02:38→22:21)
[2018-04-12 05:48] LABS: #Monocytes 0.9 thou/uL (0.11-0.59); #Neutrophils 6.2 thou/uL (1.40-6.50); %Basophils 0.4 % (0.0-1.0); %Eosinophils 0.3 % (0.0-10.0); %Lymphocytes 12.3 % (21.0-51.0); %Monocytes 11.1 % (0.0-10.0); %Neutrophils 75.8 % (42.0-75.0); Hemoglobin 13.5 g/dL (12.0-16.0); Mean Corpuscular HGB CONC 35.7 g/dL (32.0-36.0); Mean Corpuscular Hemoglobin 32.2 pg (27.0-31.0); Mean Corpuscular Volume 90.3 fL (78.0-98.0); Mean Platelet Volume 6.1 fL (7.4-10.4); Platelet Count 164 thou/uL (130-400); RBC Distribution Width 11.5 % (11.5-14.5); Red Blood Cell (RBC) Count 4.19 mill/uL (4.20-5.40); White Blood Cell (WBC) Count 8.1 thou/uL (4.8-10.8)
[2018-04-12] MEDS: Carvedilol 25 MG TAB PO SCH ×2 (08:08→16:10)
[2018-04-12] MEDS: Docusate 100 MG CAP PO SCH ×2 (08:08→20:41)
[2018-04-12] MEDS: Calcium Carbonate + Vit D 1 TAB PO SCH ×2 (08:08→20:41)
[2018-04-12 08:57] LABS: Anion Gap 12 mmol/L (10-20); BUN (Urea Nitrogen) 7 mg/dL (9.8-20.1); Calc. Creatinine Clearance 67 mL/min (70-130); Calcium 8.7 mg/dL (7.8-10.44); Carbon Dioxide 27 mmol/L (23-31); Chloride 95 mmol/L (98-107); Estimated GFR-MDRD Greater than 90; Glucose 106 mg/dL (83-110); Potassium 3.2 mmol/L (3.5-5.1); Sodium 131 mmol/L (136-145)
[2018-04-12] MEDS ORDERED: cloNIDine 0.1mg/24 Hour PATCH TD SCH (09:00)
[2018-04-12 17:57] LABS: Anion Gap 10 mmol/L (10-20); BUN (Urea Nitrogen) 8 mg/dL (9.8-20.1); Calc. Creatinine Clearance 68 mL/min (70-130); Calcium 8.6 mg/dL (7.8-10.44); Carbon Dioxide 27 mmol/L (23-31); Chloride 97 mmol/L (98-107); Estimated GFR-MDRD Greater than 90; Glucose 119 mg/dL (83-110); Potassium 3.2 mmol/L (3.5-5.1); Sodium 131 mmol/L (136-145)
--- NOTE | 2018-04-12 18:48 | PDOC.PN ---
- Subjective Encounter Start Date: 04/12/18 Encounter Start Time: 18:45 Subjective: nsg notes rev, rodolfo ovn, husbad @bedside says pt is sig less interactive -: than she was 3d ago and about the same, maybe better c/w yesterday -: pt herself does not verbalize any complaints - Objective Resuscitation Status: Resuscitation Status FULL:Full Resuscitation Vital Signs & Weight: Vital Signs (12 hours) Temp Pulse Resp BP BP Pulse Ox 04/12/18 17:17 97.8 F 75 16 174/83 H 93 L 04/12/18 11:27 97.4 F L 62 16 169/73 H 96 04/12/18 09:30 148/64 H 04/12/18 08:12 97.3 F L 68 16 181/83 H 95 04/12/18 08:00 97.3 F L 68 16 148/64 H 95 Weight Weight 122 lb 5.705 oz I&O: 04/11/18 04/12/18 04/13/18 06:59 06:59 06:59 Intake Total 762 2010.25 Output Total 1550 1150 Balance -788 860.25 Result Diagrams: 04/12/18 00:35 04/12/18 17:20 Phys Exam - Physical Examination Constitutional: NAD lying in hospital bed HEENT: moist MMs Respiratory: no wheezing, no rhonchi slightly coarse throught Cardiovascular: RRR, no rub Gastrointestinal: soft, positive bowel sounds Musculoskeletal: no edema Dx/Plan - Plan * fever * supposed UTI with a consistent UA but UCx neg - continue on empiric ceftriaxone * check CXR and renal U/S given presence of blood and generalized c/o of pain on adm * * recent hemorrhage * continue to monitor * physical therapy, speech therapy - already on a modified diet, will request formal speech eval for repeat assessment of aspiration as she is described as somewhat less participatory * * Review of Systems - Medications/Allergies Allergies/Adverse Reactions: Allergies Allergy/AdvReac Type Severity Reaction Status Date / Time No Known Drug Allergies Allergy Verified 03/23/18 01:58 Medications: Current Medications Acetaminophen (Tylenol) 650 mg PO Q6H PRN PRN Reason: Fever > 101 or Headache Last Admin: 04/12/18 02:38 Dose: 650 mg Artificial Tears (Tears Naturale) 1 drop EA EYE PRN PRN PRN Reason: DRY EYES Atorvastatin Calcium (Lipitor) 80 mg PO HS [facility] Bisacodyl (Dulcolax) 10 mg PO DAILYPRN PRN PRN Reason: Constipation Calcium Carbonate (Tums) 1,000 mg PO Q4H PRN PRN Reason: Heartburn or Indigestion Calcium/Vitamin D (Caltrate 600 + Vit D) 1 tab PO BID [facility] Last Admin: 04/12/18 08:08 Dose: 1 tab Carvedilol (Coreg) 25 mg PO BID-[facility] Last Admin: 04/12/18 16:10 Dose: 25 mg Clonidine (Vyosavnd-Cre-6) 0.2 mg TD We MICHAEL Docusate Sodium (Colace) 100 mg PO BID [facility] Last Admin: 04/12/18 08:08 Dose: 100 mg Hydralazine HCl (Apresoline) 10 mg SLOW IVP Q4H PRN PRN Reason: SBP >= 180 Last Admin: 04/11/18 20:44 Dose: 10 mg Sodium Chloride (Normal Saline 0.9%) 1,000 mls @ 75 mls/hr IV .[id number] [facility] Last Admin: 04/12/18 14:20 Dose: 1,000 mls Ceftriaxone Sodium 1 gm/ (Sodium Chloride) 100 mls @ 200 mls/hr IVPB Q24HR [facility] Last Admin: 04/12/18 02:07 Dose: 100 mls Magnesium Hydroxide (Milk Of Magnesium) 30 ml PO BIDPRN PRN PRN Reason: Constipation Senna (Senokot) 2 tab PO HSPRN PRN PRN Reason: Constipation Sodium Chloride (Flush - Normal Saline) 10 ml IVF PRN PRN PRN Reason: Saline Flush Last Admin: 04/12/18 08:08 Dose: 10 ml
--- NOTE | 2018-04-12 19:23 | RAD ---
CHEST ONE VIEW: 04/12/18 HISTORY: Dyspnea. Aspiration. FINDINGS: No comparison. The cardiac silhouette is magnified by projection. Pulmonary vasculature are unremarka ble. Mediastinum midline with aortic calcification. No lobar consolidation or evidence of pneumothora x. IMPRESSION: Atherosclerosis. No active cardiopulmonary abnormalities are demonstrated. POS: [facility]
[2018-04-12] MEDS: Atorvastatin Calcium 40 MG TAB PO SCH (20:41)
[2018-04-12] MEDS: hydrALAZINE 20 MG/ML VIAL SLOW IVP PRN (22:18)
[2018-04-13 01:05] LABS: Anion Gap 12 mmol/L (10-20); BUN (Urea Nitrogen) 7 mg/dL (9.8-20.1); Calc. Creatinine Clearance 69 mL/min (70-130); Calcium 8.4 mg/dL (7.8-10.44); Carbon Dioxide 27 mmol/L (23-31); Chloride 97 mmol/L (98-107); Estimated GFR-MDRD Greater than 90; Glucose 125 mg/dL (83-110); Sodium 133 mmol/L (136-145)
[2018-04-13 01:16] LABS: Potassium 2.9 mmol/L (3.5-5.1)
[2018-04-13] MEDS: cefTRIAXone\\ROCEPHIN 1 GM in Sodium Chloride 0.9% 100 ML IVPB SCH (01:18)
[2018-04-13] MEDS ORDERED: Potassium Chloride 20 MEQ TAB PO SCH (02:00)
[2018-04-13 04:14] LABS: #Lymphocytes 0.9 thou/uL (1.20-3.40); #Monocytes 0.7 thou/uL (0.11-0.59); #Neutrophils 4.4 thou/uL (1.40-6.50); %Basophils 0.3 % (0.0-1.0); %Eosinophils 0.1 % (0.0-10.0); %Monocytes 10.9 % (0.0-10.0); %Neutrophils 73.7 % (42.0-75.0); Hemoglobin 12.2 g/dL (12.0-16.0); Mean Corpuscular HGB CONC 35.5 g/dL (32.0-36.0); Mean Corpuscular Volume 90.2 fL (78.0-98.0); Mean Platelet Volume 5.9 fL (7.4-10.4); Platelet Count 153 thou/uL (130-400); RBC Distribution Width 11.5 % (11.5-14.5); Red Blood Cell (RBC) Count 3.81 mill/uL (4.20-5.40)
[2018-04-13] MEDS: Acetaminophen 325 MG TAB PO PRN ×2 (05:19→12:09)
--- NOTE | 2018-04-13 05:48 | PDOC.EVN ---
Event Note - Event Note Event Note: h&p [id number]
[2018-04-13] MEDS: Docusate 100 MG CAP PO SCH ×2 (08:43→20:37)
[2018-04-13] MEDS: Calcium Carbonate + Vit D 1 TAB PO SCH ×2 (08:43→20:38)
[2018-04-13] MEDS: Carvedilol 25 MG TAB PO SCH ×2 (08:43→16:52)
[2018-04-13] MEDS: Sodium Chloride 0.9% 1,000 ML IV SCH ×3 (08:46→20:37)
[2018-04-13 09:32] LABS: Anion Gap 11 mmol/L (10-20); BUN (Urea Nitrogen) 7 mg/dL (9.8-20.1); Calc. Creatinine Clearance 66 mL/min (70-130); Calcium 8.4 mg/dL (7.8-10.44); Carbon Dioxide 26 mmol/L (23-31); Chloride 99 mmol/L (98-107); Estimated GFR-MDRD Greater than 90; Glucose 179 mg/dL (83-110); Magnesium 1.8 mg/dL (1.6-2.6); Phosphorus 2.1 mg/dL (2.3-4.7); Potassium 3.3 mmol/L (3.5-5.1); Sodium 133 mmol/L (136-145)
--- NOTE | 2018-04-13 10:02 | ULT ---
BILATERAL RENAL ULTRASOUND: Date: 04/13/18 HISTORY: TECHNIQUE: Multiple longitudinal and transverse images of the kidneys obtained using a multihertz curvilinear tr ansducer. Real-time images obtained. FINDINGS: Both kidneys are of normal contour, axis, and size. Right kidney measures 10.6 cm and the left kidney measures 10.4 cm from pole to pole. No evidence of renal parenchymal masses seen. No evidence of hyd ronephrosis seen. There may be an area of calcification in the left renal pelvis measuring approximat veda 5.0 mm. The urinary bladder is decompressed due to an indwelling Cedeno catheter. IMPRESSION: Possible left renal pelvic calculus. Otherwise unremarkable renal ultrasound. POS: [facility]
[2018-04-13 10:06] LABS: Folate (Folic Acid) 14.2 ng/mL (7.0-31.4)
[2018-04-13] MEDS: K-Phos Neutral 250 MG TAB PO SCH ×2 (12:06→16:52)
[2018-04-13 16:55] LABS: Anion Gap 11 mmol/L (10-20); BUN (Urea Nitrogen) 8 mg/dL (9.8-20.1); Calc. Creatinine Clearance 69 mL/min (70-130); Calcium 8.3 mg/dL (7.8-10.44); Carbon Dioxide 24 mmol/L (23-31); Chloride 101 mmol/L (98-107); Estimated GFR-MDRD Greater than 90; Glucose 122 mg/dL (83-110); Potassium 3.2 mmol/L (3.5-5.1); Sodium 133 mmol/L (136-145)
[2018-04-13] MEDS: Atorvastatin Calcium 40 MG TAB PO SCH (20:37)
[2018-04-13] MEDS: Amlodipine 5 MG TAB PO SCH (20:38)
--- NOTE | 2018-04-13 23:06 | PDOC.PN ---
- Subjective Encounter Start Date: 04/13/18 Encounter Start Time: 16:00 Patient seen and examined for Encephalopathy - Mentation improving per spouse. Still has intermittent confusion and somnolence. No new complaints. No overnight events - Objective Resuscitation Status: Resuscitation Status FULL:Full Resuscitation MAR Reviewed: Yes Vital Signs & Weight: Vital Signs (12 hours) Temp Pulse Resp BP BP Pulse Ox 04/13/18 20:38 82 172/89 H 04/13/18 20:00 97.8 F 82 18 172/89 H 94 L 04/13/18 18:06 164/73 H 04/13/18 17:00 97.4 F L 65 16 178/73 H 95 04/13/18 11:52 97.5 F L 65 18 167/79 H 94 L Weight Weight 122 lb 5.705 oz I&O: 04/12/18 04/13/18 04/14/18 06:59 06:59 06:59 Intake Total 762 2010.25 1920.5 Output Total 1550 1150 700 Balance -788 860.25 1220.5 Result Diagrams: 04/14/18 04:13 04/14/18 04:13 Additional Labs: Laboratory Tests 04/11/18 04/13/18 04/13/18 15:25 00:33 08:56 Sodium 133 L Potassium 2.9 L* 3.3 L Phosphorus 2.1 L Urine WBC Greater Than 50-TNTC H Urine Bacteria 3+ H 04/13/18 16:22 Sodium 133 L Potassium 3.2 L Phosphorus Urine WBC Urine Bacteria Microbiology 04/12/18 02:15 Urine gonzales catheter Urine Culture - Final Proteus species 04/11/18 16:34 Venous blood - Right Hand Blood Culture - Preliminary NO GROWTH AT 48 HOURS 04/11/18 16:03 Venous blood - Left Arm Blood Culture - Preliminary NO GROWTH AT 48 HOURS Laboratory Tests 04/11/18 04/13/18 15:25 08:56 Vitamin B12 559 Folate 14.20 Urine Osmolality 330 Radiology Reviewed by me: No (CT brain - No new bleeding) Phys Exam - Physical Examination Constitutional: NAD Respiratory: no wheezing, no rhonchi Cardiovascular: RRR, no rub Gastrointestinal: soft, non-tender, positive bowel sounds gonzales + Musculoskeletal: no edema Neurological: moves all 4 limbs Detailed Neuro exam not done due to current mentation Skin: no rash Dx/Plan - Plan DVT proph w/SCDs IMPRESSION: 1. Toxic Metabolic Encephalopathy - multifactorial - prob due to #2,3 and 4, Mentation still not back to baseline 2. Proteus UTI 3. Hyponatremia/Hypokalemia/Hypophosphatemia 4. HTN urgency 5. Recent intracranial bleed with Rt sided weakness 6. HLD 7. h/o TAVR and DVT - not on anticoag due to recent intracranial bleed PLAN: Cont IV Ceftriaxone Replace electrolytes Add Amlodipine due to uncontrolled BP - Patient received 2 doses of IV Hydralazine this hospitalization AM labs Cont PT/OT It is unclear whether patient has gonzales at nursing facility Review of Systems - Review of Systems Respiratory: negative: Cough, Dry, Shortness of Breath, Hemoptysis, SOB with Excertion, Pleuritic Pain, Sputum, Wheezing Cardiovascular: negative: chest pain, palpitations, orthopnea, paroxysmal nocturnal dyspnea, edema, light headedness, other - Medications/Allergies Allergies/Adverse Reactions: Allergies Allergy/AdvReac Type Severity Reaction Status Date / Time No Known Drug Allergies Allergy Verified 03/23/18 01:58 Medications: Current Medications Acetaminophen (Tylenol) 650 mg PO Q6H PRN PRN Reason: Fever > 101 or Headache Last Admin: 04/13/18 12:09 Dose: 650 mg Amlodipine Besylate (Norvasc) 5 mg PO BID [facility] Last Admin: 04/13/18 20:38 Dose: 5 mg Artificial Tears (Tears Naturale) 1 drop EA EYE PRN PRN PRN Reason: DRY EYES Atorvastatin Calcium (Lipitor) 80 mg PO [facility] Last Admin: 04/13/18 20:37 Dose: 80 mg Bisacodyl (Dulcolax) 10 mg PO DAILYPRN PRN PRN Reason: Constipation Calcium Carbonate (Tums) 1,000 mg PO Q4H PRN PRN Reason: Heartburn or Indigestion Calcium/Vitamin D (Caltrate 600 + Vit D) 1 tab PO BID [facility] Last Admin: 04/13/18 20:38 Dose: 1 tab Carvedilol (Coreg) 25 mg PO BID-[facility] Last Admin: 04/13/18 16:52 Dose: 25 mg Clonidine (Lvgsswzv-Qmh-4) 0.2 mg TD We [facility] Docusate Sodium (Colace) 100 mg PO BID [facility] Last Admin: 04/13/18 20:37 Dose: 100 mg Hydralazine HCl (Apresoline) 10 mg SLOW IVP Q4H PRN PRN Reason: SBP >= 180 Last Admin: 04/12/18 22:18 Dose: 10 mg Ceftriaxone Sodium 1 gm/ (Sodium Chloride) 100 mls @ 200 mls/hr IVPB Q24HR [facility] Last Admin: 04/13/18 01:18 Dose: 100 mls Sodium Chloride (Normal Saline 0.9%) 1,000 mls @ 50 mls/hr IV .Q20H [facility] Last Admin: 04/13/18 20:37 Dose: 1,000 mls Magnesium Hydroxide (Milk Of Magnesium) 30 ml PO BIDPRN PRN PRN Reason: Constipation Phosphorus (Kphos Neutral) 250 mg PO TID-WM [facility] Last Admin: 04/13/18 16:52 Dose: 250 mg Senna (Senokot) 2 tab PO HSPRN PRN PRN Reason: Constipation Sodium Chloride (Flush - Normal Saline) 10 ml IVF PRN PRN PRN Reason: Saline Flush Last Admin: 04/12/18 08:08 Dose: 10 ml
[2018-04-14] MEDS: cefTRIAXone\\ROCEPHIN 1 GM in Sodium Chloride 0.9% 100 ML IVPB SCH (00:43)
[2018-04-14 05:29] LABS: #Lymphocytes 1.1 thou/uL (1.20-3.40); #Monocytes 0.5 thou/uL (0.11-0.59); #Neutrophils 5.2 thou/uL (1.40-6.50); %Eosinophils 0.2 % (0.0-10.0); %Lymphocytes 16.1 % (21.0-51.0); %Monocytes 7.3 % (0.0-10.0); %Neutrophils 76.4 % (42.0-75.0); Hemoglobin 13.2 g/dL (12.0-16.0); Mean Corpuscular HGB CONC 33.8 g/dL (32.0-36.0); Mean Corpuscular Hemoglobin 30.5 pg (27.0-31.0); Mean Platelet Volume 5.8 fL (7.4-10.4); Platelet Count 149 thou/uL (130-400); RBC Distribution Width 11.4 % (11.5-14.5); Red Blood Cell (RBC) Count 4.35 mill/uL (4.20-5.40); White Blood Cell (WBC) Count 6.8 thou/uL (4.8-10.8)
[2018-04-14 05:50] LABS: Anion Gap 12 mmol/L (10-20); BUN (Urea Nitrogen) 5 mg/dL (9.8-20.1); Calc. Creatinine Clearance 69 mL/min (70-130); Calcium 8.4 mg/dL (7.8-10.44); Carbon Dioxide 27 mmol/L (23-31); Chloride 97 mmol/L (98-107); Estimated GFR-MDRD Greater than 90; Glucose 103 mg/dL (83-110); Magnesium 1.8 mg/dL (1.6-2.6); Phosphorus 2.4 mg/dL (2.3-4.7); Sodium 133 mmol/L (136-145)
[2018-04-14 05:54] LABS: Potassium 2.8 mmol/L (3.5-5.1)
[2018-04-14] MEDS ORDERED: Potassium Chloride 20 MEQ/100 ML PREMIX BAG IVPB SCH (06:15)
[2018-04-14] MEDS ORDERED: Potassium Chloride 20 MEQ in Premix Bag 1 BAG IVPB SCH (06:30)
[2018-04-14] MEDS: Calcium Carbonate + Vit D 1 TAB PO SCH ×2 (08:45→20:20)
[2018-04-14] MEDS: Docusate 100 MG CAP PO SCH ×2 (08:46→20:20)
[2018-04-14] MEDS: Amlodipine 5 MG TAB PO SCH ×2 (08:46→20:20)
[2018-04-14] MEDS: Carvedilol 25 MG TAB PO SCH ×2 (08:46→17:17)
[2018-04-14] MEDS: K-Phos Neutral 250 MG TAB PO SCH ×3 (08:46→17:17)
--- NOTE | 2018-04-14 09:46 | HP ---
PRIMARY CARE PHYSICIAN: An out of town physician. HISTORY OF PRESENT ILLNESS: This is an 87-year-old female who was recently hospitalized and discharged from nontraumatic intracerebral hemorrhage, with resultant aphasia and right hemiplegia. She was sent over today for fever. She was initially sent to an outside emergency department and from the ER reports in our facility, the bleed itself is grossly unchanged and in fact, it could be potentially improved as per CT examination. Patient was also sent to our facility at concern for fever and potential underlying infection. Initial urinalysis demonstrated possibility of a urinary tract infection. At the time of my evaluation, the patient does not have a family available at bedside to provide a more precise timeline, although it appears that she has had a decline over the last 2-4 days on an outpatient basis. REVIEW OF SYSTEMS: Difficult to obtain due to the patient's ability to adequately answers questions. From what I can gather, the patient seems to feel that her head is hurting. She denies pain elsewhere. She does not seem to endorse any component of dysuria. PAST MEDICAL HISTORY: As per above, 1. Intracerebral hemorrhage, nontraumatic with aphasia and right hemiplegia. 2. Atrial fibrillation. 3. Prior history of TIAs. 4. Severe aortic stenosis. 5. Hyperlipidemia. 6. Prior history of DVT. PAST SURGICAL HISTORY: 1. Status post TAVR. 2. Status post hysterectomy. 3. Status post carpal tunnel release. HOME MEDICATIONS: Includes the following, atorvastatin 80 mg p.o. at bedtime, vitamin D3 one tab p.o. b.i.d., clonidine 1 patch every 7 days, carvedilol 25 mg p.o. b.i.d., magnesium hydroxide 30 mL p.o. b.i.d. p.r.n., Acetaminophen 650 mg p.o. q.6 hours p.r.n., Artificial Tears 1 drop each eye p.r.n. ALLERGIES: No known drug allergies. FAMILY HISTORY: No known family history of stroke. SOCIAL HISTORY: The patient is currently residing in rehab, which is where she was discharged to from our facility. PHYSICAL EXAMINATION: GENERAL: The patient is awake. She localizes but does not truly adequately verbalize. She will sometimes moan in aggreement or disagreement to directed questions. HEENT: Slightly dry mucous membranes. Normocephalic, atraumatic. CARDIOVASCULAR: S1, S2. Prominent systolic ejection murmur appreciated. Pulses 2+ bilateral upper extremities. RESPIRATORY: The patient is not actively participating in examination, but otherwise no wheezes, rales or rhonchi. Limited anterior examination. Grossly clear to auscultation. ABDOMEN: Positive bowel sounds, soft, nontender to palpation. LABORATORY DATA AND IMAGING: WBC 6.5, hemoglobin 13.4, hematocrit 37.7, platelets 166, sodium 127, potassium 3.5, chloride 91, bicarbonate 27, BUN 8, creatinine 0.52, glucose 120. UA significant for moderate blood, positive nitrites, large leukocyte esterase, 7-10 RBCs, greater than 50 WBCs, 3+ urine bacteria. ASSESSMENT AND PLAN: This is an 87-year-old female who recently had significant intracranial hemorrhagic bleed. She is returning to her facility with a primarily chief complaint of fever. The patient is currently not meeting sepsis; however, she does have a UA that suggestive of urinary tract infection. We will send for urine culture and empirically treat the ceftriaxone. The patient does not have a noted history of multidrug resistant urinary tract infection. 1. History of aortic stenosis, appears grossly stable. 2. History of atrial fibrillation. Continue on her home regimen. 3. Prior intracranial hemorrhage as noted above. Continue with aggressive PT, OT and ST as from her prior hospitalization. 4. Activity: As above. 5. Deep venous thrombosis prophylaxis with sequential. CODE STATUS: Currently presumed to be FULL CODE and will have to be verified with the patient's family and MPOA when they are available. CORTEZ
[2018-04-14] MEDS: Sodium Chloride 0.9% 1,000 ML IV SCH (17:26)
[2018-04-14] MEDS: Acetaminophen 325 MG TAB PO PRN (20:19)
[2018-04-14] MEDS: Atorvastatin Calcium 40 MG TAB PO SCH (20:20)
--- NOTE | 2018-04-14 22:42 | PDOC.PN ---
- Subjective Encounter Start Date: 04/14/18 Encounter Start Time: 16:00 Patient seen and examined for Encephalopathy. Mentation improving. No new complaints. No overnight events - Objective Resuscitation Status: Resuscitation Status FULL:Full Resuscitation MAR Reviewed: Yes Vital Signs & Weight: Vital Signs (12 hours) Temp Pulse Resp BP BP BP Pulse Ox 04/14/18 20:20 64 145/77 H 04/14/18 20:00 98.4 F 64 20 145/77 H 94 L 04/14/18 16:37 97.5 F L 79 16 132/81 95 04/14/18 11:08 97.6 F 71 16 130/73 94 L Weight Weight 122 lb 5.705 oz I&O: 04/13/18 04/14/18 04/15/18 06:59 06:59 06:59 Intake Total 2010.25 2520.5 1300 Output Total 1150 2500 800 Balance 860.25 20.5 500 Result Diagrams: 04/14/18 04:13 04/15/18 03:55 Phys Exam - Physical Examination Constitutional: NAD Respiratory: no wheezing, no rhonchi Cardiovascular: RRR, no rub Gastrointestinal: soft, non-tender, positive bowel sounds Musculoskeletal: no edema Neuro -no new focal findings Psychiatric: A&O x 3 Dx/Plan - Plan plan discussed w/ family, gonzales catheter, continue antibiotics, PT/OT, social media coordinator, speech therapy, DVT proph w/SCDs IMPRESSION: 1. Toxic Metabolic Encephalopathy - multifactorial - prob due to #2,3 and 4, Mentation improving 2. Proteus UTI - on IV Ceftriaxone 3. Hyponatremia/Hypokalemia/Hypophosphatemia 4. HTN urgency - BP better controlled 5. Recent intracranial bleed with Rt sided weakness 6. HLD 7. h/o TAVR and DVT - not on anticoag due to recent intracranial bleed PLAN: Cont Atbx Replace Potassium Cont Amlodipine AM labs Cont PT/OT DC in AM if stable ?DC Gonzales at dc - It is unclear whether patient came with gonzales from [place] Laboratory Tests 04/14/18 04:13 Potassium 2.8 L* Magnesium 1.8 Review of Systems - Review of Systems Respiratory: negative: Cough, Dry, Shortness of Breath, Hemoptysis, SOB with Excertion, Pleuritic Pain, Sputum, Wheezing Cardiovascular: negative: chest pain, palpitations, orthopnea, paroxysmal nocturnal dyspnea, edema, light headedness, other - Medications/Allergies Allergies/Adverse Reactions: Allergies Allergy/AdvReac Type Severity Reaction Status Date / Time No Known Drug Allergies Allergy Verified 03/23/18 01:58 Medications: Current Medications Acetaminophen (Tylenol) 650 mg PO Q6H PRN PRN Reason: Fever > 101 or Headache Last Admin: 04/14/18 20:19 Dose: 650 mg Amlodipine Besylate (Norvasc) 5 mg PO BID [facility] Last Admin: 04/14/18 20:20 Dose: 5 mg Artificial Tears (Tears Naturale) 1 drop EA EYE PRN PRN PRN Reason: DRY EYES Atorvastatin Calcium (Lipitor) 80 mg PO HS [facility] Last Admin: 04/14/18 20:20 Dose: 80 mg Bisacodyl (Dulcolax) 10 mg PO DAILYPRN PRN PRN Reason: Constipation Calcium Carbonate (Tums) 1,000 mg PO Q4H PRN PRN Reason: Heartburn or Indigestion Calcium/Vitamin D (Caltrate 600 + Vit D) 1 tab PO BID [facility] Last Admin: 04/14/18 20:20 Dose: 1 tab Carvedilol (Coreg) 25 mg PO BID-[facility] Last Admin: 04/14/18 17:17 Dose: 25 mg Clonidine (Ppmhcabe-Upe-2) 0.2 mg TD We [facility] Docusate Sodium (Colace) 100 mg PO BID [facility] Last Admin: 04/14/18 20:20 Dose: Not Given Hydralazine HCl (Apresoline) 10 mg SLOW IVP Q4H PRN PRN Reason: SBP >= 180 Last Admin: 04/12/18 22:18 Dose: 10 mg Ceftriaxone Sodium 1 gm/ (Sodium Chloride) 100 mls @ 200 mls/hr IVPB Q24HR [facility] Last Admin: 04/14/18 00:43 Dose: 100 mls Sodium Chloride (Normal Saline 0.9%) 1,000 mls @ 50 mls/hr IV .Q20H [facility] Last Admin: 04/14/18 17:26 Dose: 1,000 mls Magnesium Hydroxide (Milk Of Magnesium) 30 ml PO BIDPRN PRN PRN Reason: Constipation Phosphorus (Kphos Neutral) 250 mg PO TID-[facility] Last Admin: 04/14/18 17:17 Dose: 250 mg Potassium Chloride (Klor-Con) 20 meq PO TID-[facility] MICHAEL Stop: 04/15/18 08:01 Last Admin: 04/14/18 17:17 Dose: 20 meq Senna (Senokot) 2 tab PO HSPRN PRN PRN Reason: Constipation Sodium Chloride (Flush - Normal Saline) 10 ml IVF PRN PRN PRN Reason: Saline Flush Last Admin: 04/12/18 08:08 Dose: 10 ml
[2018-04-15] MEDS: cefTRIAXone\\ROCEPHIN 1 GM in Sodium Chloride 0.9% 100 ML IVPB SCH (01:52)
[2018-04-15 05:04] LABS: Anion Gap 10 mmol/L (10-20); BUN (Urea Nitrogen) 6 mg/dL (9.8-20.1); Calc. Creatinine Clearance 77 mL/min (70-130); Calcium 8.4 mg/dL (7.8-10.44); Carbon Dioxide 27 mmol/L (23-31); Chloride 98 mmol/L (98-107); Estimated GFR-MDRD Greater than 90; Glucose 117 mg/dL (83-110); Potassium 3.6 mmol/L (3.5-5.1); Sodium 131 mmol/L (136-145)
[2018-04-15] MEDS: Acetaminophen 325 MG TAB PO PRN ×2 (06:27→15:35)
[2018-04-15] MEDS: Carvedilol 25 MG TAB PO SCH ×2 (08:35→17:30)
[2018-04-15] MEDS: Amlodipine 5 MG TAB PO SCH ×2 (08:35→21:56)
[2018-04-15] MEDS: Calcium Carbonate + Vit D 1 TAB PO SCH ×2 (08:35→21:57)
[2018-04-15] MEDS: K-Phos Neutral 250 MG TAB PO SCH ×3 (08:35→17:30)
[2018-04-15] MEDS: Docusate 100 MG CAP PO SCH ×2 (08:36→21:57)
[2018-04-15] MEDS: Sodium Chloride 0.9% 1,000 ML IV SCH (11:14)
--- NOTE | 2018-04-15 19:31 | PDOC.PN ---
- Subjective Encounter Start Date: 04/15/18 Encounter Start Time: 19:30 Patient seen and examined today with and Niece in the room. Patient is not in any distress. patient is able to communicate with me without any difficulties. Spoke to . We will d/c gonzales. Wait for patient to void then will discharge patient on antibiotics to cover Proteus in the Urine for 7 days. - Objective Resuscitation Status: Resuscitation Status FULL:Full Resuscitation MAR Reviewed: Yes Vital Signs & Weight: Vital Signs (12 hours) Temp Pulse Resp BP Pulse Ox 04/15/18 08:35 71 171/92 H 04/15/18 08:00 97.7 F 71 18 95 Weight Weight 122 lb 5.705 oz I&O: 04/14/18 04/15/18 04/16/18 06:59 06:59 06:59 Intake Total 2520.5 1300 Output Total 2500 1750 Balance 20.5 -450 Result Diagrams: 04/14/18 04:13 04/15/18 03:55 Phys Exam - Physical Examination Constitutional: NAD HEENT: PERRLA, moist MMs Neck: no JVD, supple, full ROM Respiratory: no wheezing, no rales, no rhonchi, clear to auscultation bilateral Cardiovascular: RRR, no significant murmur, no rub Gastrointestinal: soft, non-tender, no distention Musculoskeletal: no edema 4/5 lower extremity weakness b/l Neurological: moves all 4 limbs (gonzales inserted) Dx/Plan (1) UTI (urinary tract infection) Status: Acute Comment: Patient is currently stable. D/C gonzales. Wait for patient to void and discharge patient back to rehab on Cipro for 7 days. If it is too late to discharge patient kindly wait until the morning before discharging the patient after I c the patient in the morning. (2) History of hemorrhagic stroke with residual hemiparesis Code(s): I69.359 - HEMIPLGA FOLLOWING CEREBRAL INFARCTION AFFECTING UNSP SIDE Status: Acute Comment: stable. Recovering. will send patient back to rehab (3) Hypertension Code(s): I10 - ESSENTIAL (PRIMARY) HYPERTENSION Status: Acute Qualifiers: Hypertension type: essential hypertension Qualified Code(s): I10 - Essential (primary) hypertension Comment: continue patient on home BP meds. (4) Hyperlipidemia Code(s): E78.5 - HYPERLIPIDEMIA, UNSPECIFIED Status: Chronic Comment: continue statin - Plan DVT proph w/SCDs * . see above. Review of Systems - Review of Systems Constitutional: negative: fever, chills, sweats, weakness, malaise, other Eyes: negative: Pain, Vision Change, Conjunctivae Inflammation, Eyelid Inflammation, Redness, Other ENT: negative: Ear Pain, Ear Discharge, Nose Pain, Nose Discharge, Nose Congestion, Mouth Pain, Mouth Swelling, Throat Pain, Throat Swelling, Other Respiratory: negative: Cough, Dry, Shortness of Breath, Hemoptysis, SOB with Excertion, Pleuritic Pain, Sputum, Wheezing Cardiovascular: negative: chest pain, palpitations, orthopnea, paroxysmal nocturnal dyspnea, edema, light headedness, other Gastrointestinal: negative: Nausea, Vomiting, Abdominal Pain, Diarrhea, Constipation, Melena, Hematochezia, Other Genitourinary: negative: Dysuria, Frequency, Incontinence, Hematuria, Retention , Other Musculoskeletal: negative: Neck Pain, Shoulder Pain, Arm Pain, Back Pain, Hand Pain, Leg Pain, Foot Pain, Other Skin: negative: Rash, Lesions, Ivan, Bruising, Other Neurological: negative: Weakness, Numbness, Incoordination, Change in Speech, Confusion, Seizures, Other - Medications/Allergies Allergies/Adverse Reactions: Allergies Allergy/AdvReac Type Severity Reaction Status Date / Time No Known Drug Allergies Allergy Verified 03/23/18 01:58 Medications: Current Medications Acetaminophen (Tylenol) 650 mg PO Q6H PRN PRN Reason: Fever > 101 or Headache Last Admin: 04/15/18 15:35 Dose: 650 mg Amlodipine Besylate (Norvasc) 5 mg PO BID [facility] Last Admin: 04/15/18 08:35 Dose: 5 mg Artificial Tears (Tears Naturale) 1 drop EA EYE PRN PRN PRN Reason: DRY EYES Atorvastatin Calcium (Lipitor) 80 mg PO HS [facility] Last Admin: 04/14/18 20:20 Dose: 80 mg Bisacodyl (Dulcolax) 10 mg PO DAILYPRN PRN PRN Reason: Constipation Calcium Carbonate (Tums) 1,000 mg PO Q4H PRN PRN Reason: Heartburn or Indigestion Calcium/Vitamin D (Caltrate 600 + Vit D) 1 tab PO BID [facility] Last Admin: 04/15/18 08:35 Dose: 1 tab Carvedilol (Coreg) 25 mg PO BID-[facility] Last Admin: 04/15/18 17:30 Dose: 25 mg Clonidine (Bxbixfaj-Nbf-1) 0.2 mg TD We [facility] Docusate Sodium (Colace) 100 mg PO BID [facility] Last Admin: 04/15/18 08:36 Dose: Not Given Hydralazine HCl (Apresoline) 10 mg SLOW IVP Q4H PRN PRN Reason: SBP >= 180 Last Admin: 04/12/18 22:18 Dose: 10 mg Ceftriaxone Sodium 1 gm/ (Sodium Chloride) 100 mls @ 200 mls/hr IVPB Q24HR [facility] Last Admin: 04/15/18 01:52 Dose: 100 mls Magnesium Hydroxide (Milk Of Magnesium) 30 ml PO BIDPRN PRN PRN Reason: Constipation Phosphorus (Kphos Neutral) 250 mg PO TID-[facility] Last Admin: 04/15/18 17:30 Dose: 250 mg Senna (Senokot) 2 tab PO HSPRN PRN PRN Reason: Constipation Sodium Chloride (Flush - Normal Saline) 10 ml IVF PRN PRN PRN Reason: Saline Flush Last Admin: 04/12/18 08:08 Dose: 10 ml
[2018-04-15] MEDS: Atorvastatin Calcium 40 MG TAB PO SCH (21:57)
[2018-04-16] MEDS: cefTRIAXone\\ROCEPHIN 1 GM in Sodium Chloride 0.9% 100 ML IVPB SCH (01:56)
[2018-04-16 08:06] VITALS: BP 132/78; TEMP 98.7
[2018-04-16] MEDS: Amlodipine 5 MG TAB PO SCH (08:26)
[2018-04-16] MEDS: K-Phos Neutral 250 MG TAB PO SCH (08:27)
[2018-04-16] MEDS: Docusate 100 MG CAP PO SCH (08:27)
[2018-04-16] MEDS: Calcium Carbonate + Vit D 1 TAB PO SCH (08:27)
[2018-04-16] MEDS: Carvedilol 25 MG TAB PO SCH (08:27)
[2018-04-16] MEDS ORDERED: cloNIDine 0.2mg/24 Hour PATCH TD SCH (09:00)
--- NOTE | 2018-04-17 12:00 | DIS ---
Today's progress, the patient was seen and examined by me with niece in the room and patient's husban d in the room as well. Further discussions were had with the . Per the , the patient was doing very well. Patient was fair this morning and the patient was tolerating a diet. Patient d id not have any distress. The patient was actually alert, oriented and was very active. Did not hav e any distress and patient is stable to be discharged back to rehabilitation. Vitals were reviewed a nd medical laboratory was also reviewed and were within normal limits. DISCHARGE DIAGNOSES: 1. Urinary tract infection, acute. 2. History of hemorrhagic stroke with residual hemiparesis. 3. Hypertension 4. Hyperlipidemia. HOSPITAL COURSE: This is an 87-year-old female with recent history of hemorrhagic stroke who has rig ht-sided hemiplegia due to stroke, recently hospitalized and [facility] In the rehabilitation, patient developed UTI. The patient was sent to the ED, the patient had been treated for UTI with antibiotics. Patient is going to be sent back to rehab with a dose of antibiot ics to be taking p.o. We will also give patient lactobacillus to prevent C. difficile infection and we will continue patient on her current home medications. The patient is currently stable, not in ac raeann distress. LABORATORY DATA: When patient came into the hospital, patient's WBC was 6.5, hemoglobin was 13.4, he matocrit of 37.7, platelets of 166. Sodium 127, potassium 3.5, chloride 91, bicarbonate 27, BUN is 8 , creatinine 0.5, glucose 120. Urinalysis significant for leukoesterase and nitrites. DISCHARGE MEDICATIONS: Kindly refer to electronic medical record for discharge medications. DISPOSITION: Patient was discharged back to rehab in a good and stable condition. Pao was liset inued. Discharge encounter was approximately 35 minutes.
--- NOTE | 2018-04-17 14:27 | PQF ---
[employer] SAMI Villela RANDALL [id number] CLINICAL DOCUMENTATION CLARIFICATION FORM: POST DISCHARGE Addendum to original discharge summary date: ____ Late entry note date: __ Please exercise your independent, professional judgment in responding to the clarification form. Clinical indicators are provided on the bottom of this form for your review Please check appropriate box(s): [ ] UTI please specify if due to or related to (as applicable): [ ] Indwelling catheter [ ] Unable to determine etiology [ ] Contaminated urine specimen without UTI [ ] Other diagnosis [ ] Unable to determine For continuity of documentation, please document condition throughout progress notes and discharge summary. Thank You. CLINICAL INDICATORS - SIGNS / SYMPTOMS / LABS Positive urinalysis Hematuria Fever Documentation: UTI RISK FACTORS History of neurogenic bladder History self-cath/indwelling catheter Immunocompromised Debility / snf resident TREATMENT: Antibiotics IVF Velasco cath removed / changed [employer] SAMI Villela RANDALL [id number] CLINICAL DOCUMENTATION CLARIFICATION FORM: POST DISCHARGE Please exercise your independent, professional judgment in responding to the clarification form. Clinical indicators are provided on the bottom of this form for your review Please check appropriate box(s): [ ] UTI please specify if due to or related to (as applicable): [ ] Indwelling catheter [ ] Unable to determine etiology [ ] Contaminated urine specimen without UTI [ ] Other diagnosis [ ] Unable to determine ER NURSES ASSESSMENT: INDWELLING URINARY CATHETER PRESENT. "EST BY SENDING FACILITY" PN 04/13: IT IS UNCLEAR WHETHER PT HAS VELASCO AT NURSING FACILITY. PN 04/12: "FEVER SUPPOSED UTI WITH A CONSISTANT UA BUT UCX NEG - CONTINUE ON EMPIRIC CEFTRIAXONE" PN 04/14 "PROTEUS UTI -ON CEFTRIAXONE CLINICAL INDICATORS - SIGNS / SYMPTOMS / LABS Positive urinalysis Fever Documentation: UTI RISK FACTORS History indwelling catheter Debility / snf resident TREATMENT: Antibiotics IVF Velasco cath removed / changed (This form is maintained as a part of the permanent medical record) 2014 [employer], [employer]. All Rights Reserved Nisa [email or web address] [phone] MTDAna Rosa
== END 2018-04-16 11:46 | DRG 689 ==
LOC: ERS 15:12 → T4-A 19:09 → OBSVTOIN 04-13 17:31
PROVIDERS: ADMIT Internal Medicine; ATTEND Internal Medicine
DX: N39.0 Urinary tract infection, site not specified (principal); G92 Toxic encephalopathy; I69.151 Hemiplegia and hemiparesis following nontraumatic intracerebral hemorrhage affecting right dominant side; E87.1 Hypo-osmolality and hyponatremia; I69.120 Aphasia following nontraumatic intracerebral hemorrhage; I16.0 Hypertensive urgency; I48.91 Unspecified atrial fibrillation; E78.5 Hyperlipidemia, unspecified; B96.4 Proteus (mirabilis) (morganii) as the cause of diseases classified elsewhere; E87.6 Hypokalemia; E83.39 Other disorders of phosphorus metabolism; Z95.2 Presence of prosthetic heart valve; Z86.718 Personal history of other venous thrombosis and embolism
CPT/HCPCS: 36415; 71045; 76770; 80048; 80053; 81003; 81015; 82553; 82607; 82746; 83605; 83735; 83930; 83935; 84100; 84484; 85025; 87040; 87086; 93005; 94760; 96365; G8978-GP-CM; G8979-GP-CK; G8987-GO-CM; G8988-GO-CK; G8996-GN-CL; G8997-GN-CI; J0360; J0696; J3370; J3480; J7050